=== PATIENT | male | born 1950 | race Caucasian/White ===

== ENCOUNTER 2017-10-28 00:13 | Emergency (ER) | payer MEDICARE ==
[~2017-10-28] VITALS: Ht 187.9 cm; Wt 120.2 kg
[2017-10-28] MEDS ORDERED: LISINOPRIL5 MG PO (00:41)
[2017-10-28] MEDS ORDERED: METFORMIN HCL500 MG PO (00:41)
[2017-10-28] MEDS ORDERED: ATORVASTATIN CA20 M1 PO (00:42)
[2017-10-28] MEDS ORDERED: METOPROLOL SUCC50 M1 PO (00:42)
[2017-10-28] MEDS ORDERED: HYDROCODONE-AC1 EACH PO (00:43)
[2017-10-28 01:13] LABS: BASO # 0.1 10*3/uL (0.0-0.1); BASO % 0.4 % (0.0-1.0); EOS # 0.1 10*3/uL (0.0-0.4); EOS % 0.3 % (1.0-4.0); HEMATOCRIT 44.6 % (42.0-52.0); HEMOGLOBIN 15.1 g/dl (14.0-18.0); LYMPH # 1.4 10*3/uL (1.3-4.4); LYMPH % 7.3 % (27.0-41.0); MEAN CELL VOLUME 98.2 fl (80.0-94.0); MEAN CORPUSCULAR HGB 33.3 pg (27.0-31.0); MEAN CORPUSCULAR HGB CONC 33.9 g/dl (33.0-37.0); MONO # 1.1 10*3/uL (0.1-1.0); MONO % 5.7 % (3.0-9.0); NEUT # 16.9 10*3/uL (2.3-7.9); NEUT % 85.8 % (47.0-73.0); PLATELET COUNT AUTOMATED 220 10*3/uL (130-400); RED BLOOD COUNT 4.54 10*6/uL (4.50-5.90); RED CELL DISTRI WIDTH 13.2 % (0-14.5); WHITE BLOOD COUNT 19.7 10*3/uL (4.8-10.8)
[2017-10-28 01:36] LABS: ALBUMIN 3.6 gm/dl (3.1-4.5); ALKALINE PHOSPHATASE 84 U/L (45-117); BUN 21 mg/dl (7-24); CHLORIDE 101 mmol/L (98-107); CREATININE 1.09 mg/dL (0.70-1.30); POTASSIUM 4.3 mmol/L (3.5-5.1); SGOT/AST 18 IU/L (3-35); SGPT/ALT 31 U/L (12-78); SODIUM 138 mmol/L (136-145); TOTAL PROTEIN 6.8 gm/dL (6.4-8.2)
[2017-10-28 01:39] LABS: TROPONIN I < 0.015 ng/ml (<0.045)
[2017-10-28 01:43] LABS: THYROID STIM HORMONE (HS) 0.947 uIU/ml (0.358-4.75)
[2017-10-28 02:01] LABS: BILIRUBIN NEGATIVE (NEGATIVE); BLOOD 3+ (NEGATIVE); CLARITY CLOUDY (CLEAR); COLOR YELLOW (YELLOW); GLUCOSE 2+ (NEGATIVE); KETONE 1+ (NEGATIVE); LEUKO ESTERASE 3+ (NEGATIVE); NITRITE POSITIVE (NEGATIVE); PH 6.5 (5.0-9.0); UROBILINOGEN 0.2 E.U./dl (0.2-1.0)
[2017-10-28 02:10] LABS: URINE AMPHETAMINES < 1000 (1000ng/ml); URINE BARBITURATES < 200 (200ng/ml); URINE BENZODIAZEPINES < 200 (200ng/ml); URINE CANNABINOIDS (THC) > 50 (50ng/ml); URINE COCAINE < 300 (300ng/ml); URINE METHADONE < 300 (300ng/ml); URINE OPIATES < 300 (300ng/ml)
[2017-10-28 02:15] LABS: URINE PHENCYCLIDINE < 25 (25ng/ml)
[2017-10-28 02:20] LABS: BACTERIA 3+; RBC TNTC rbc/hpf (0-2); WBC TNTC wbc/hpf (0-5)
== END 2017-10-28 03:38 | disposition short-term general hospital (02) ==
LOC: ED 00:13
PROVIDERS: Emergency Medicine Emergency Medical Services
DX: A41.9 Sepsis, unspecified organism (principal); J18.1 Lobar pneumonia, unspecified organism; N39.0 Urinary tract infection, site not specified; R09.02 Hypoxemia; R31.9 Hematuria, unspecified; R33.9 Retention of urine, unspecified; I10 Essential (primary) hypertension; E11.40 Type 2 diabetes mellitus with diabetic neuropathy, unspecified; E78.00 Pure hypercholesterolemia, unspecified; Z88.6 Allergy status to analgesic agent; Z79.899 Other long term (current) drug therapy

== ENCOUNTER 2018-10-26 15:35 | Inpatient (IN) | payer MEDICARE ==
[~2018-10-26] VITALS: Ht 188 cm; Wt 110.4 kg
--- NOTE | ~2018-10-26 | EKG ---
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 Handicapped: Deena Hagan : 1950 Requested By: CARRIE DONG Order Number: [id number] Reading MD: Elizabeth Morrison MD Measurements Intervals [place] Rate: 45 P: 63 CA: 235 QRS: -79 QRSD: 146 T: 0 QT: 488 QTc: 423 Interpretive Statements Sinus bradycardia Prolonged CA interval RBBB and LAFB Baseline wander in lead(s) V1,V3 Compared to ECG 10/31/2018 23:18:56 First degree AV block now present Left anterior fascicular block now present Atrial flutter no longer present 2:1 AV block no longer present Electronically Signed On 11-02-2018 15:07:39 PDT by Elizabeth Morrison MD CM:EKGRPT:ELECTROCARDIOGRAM REPORT [id number] CARRIE LISA DRAFT REPORT CARRIE DONG DO
--- NOTE | ~2018-10-26 | CON ---
[place], [place] REPORT OF CONSULTATION NAME: MORALES REA UNIT #: [id number] ROOM: 523 DOCTOR: LIZY GARCES MD BIRTHDATE: [birth year] DOS: 10/30/2018 REASON FOR CONSULTATION: Sacral decubitus ulcer with osteomyelitis. HISTORY OF PRESENT ILLNESS: This is a 68-year-old male, who is currently admitted to [facility] because of altered mental status. He had a prolonged hospitalization at [facility] for his sacral decubitus ulcer and osteomyelitis and he was discharged to [facility] where he stayed for just one day and he says he did not receive any antibiotics and his son found him with altered mentation and he was brought to the hospital. Since he has been admitted, which is on 26/10/2018, he has been afebrile. His labs reveal no leukocytosis. His kidney function is stable. He did suffer acute kidney injury and received brief period of dialysis at [facility]. He is currently getting antibiotics, Zyvox and meropenem. His wounds were evaluated by Dr. Schumacher from General Surgery and managing his wound VAC. This is an unfortunate case of a 68-year-old gentleman, who has now developed chronic osteomyelitis of his sacral area. He has been treated for almost 36 weeks at [facility] with IV antibiotics on 3 different occasions and according to the patient every time he used to get sick with fever, chills, nausea, vomiting and his ulcers were found infected, he was getting treatment to the point his last admission in 08/2018, he developed C. difficile diarrhea, which was treated with oral vancomycin. Subsequently, he was admitted to [facility] on 09/21/2018, with fever, chills and weakness. 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 He still has strength over his lower extremities, but no sensation and that caused his sacral decubitus ulcer. According to the patient, his ulcer was large at one point and then healing, but then it kept on getting infected. Some of the culture results, I have from [facility] initially had E. coli, VRE, MRSA from 12/2017. At that time, the VRE was ampicillin sensitive. However, after the wound debridement, which was done in [facility] last month showed growth of VRE, which is vancomycin and ampicillin resistant ESBL E. coli, Pseudomonas. The Pseudomonas is cefepime sensitive, sensitive to carbapenems as well as Levaquin. At that time, it was thought the patient should undergo diverting colostomy and suprapubic catheter placement. He even underwent ostectomy of the sacral decubitus ulcer on 10/23/2018. The pathology result, which I have from 10/23/2018, showed hemorrhagic necrotic fibroadipose tissue with prominent acute inflammation, which means he had acute on chronic osteomyelitis. The patient was discharged on linezolid plus meropenem for 6 weeks; however, he says he did not receive antibiotics at the alf at discharge. PAST MEDICAL HISTORY: Significant for COPD, diabetes, osteomyelitis of sacrum decubitus ulcer, spinal stroke, GERD, PE. PAST SURGICAL HISTORY: Appendectomy, colon resection, colostomy, colostomy reversal, nose reconstruction, multiple debridements of sacral wound, ostectomy, diverting colostomy, suprapubic catheter placement. FAMILY HISTORY: Unknown. [place], [place] REPORT OF CONSULTATION NAME: MORALES REA UNIT #: [id number] ROOM: 523 [facility] BIR[facility]: [birth year] SOCIAL HISTORY: Former smoker, nonalcoholic, no illicit drug use. MEDICATIONS: Noted. REVIEW OF SYSTEMS: A 12-point review of system has been done and pertinent negatives, positives included in HPI, rest are noncontributory. PHYSICAL EXAMINATION: VITAL SIGNS: Noted stable. GENERAL: The patient is alert, oriented x 3, not in acute distress. HEENT: Atraumatic, normocephalic. PERRLA, EOMI. RESPIRATORY: Air entry bilaterally equal. No wheeze or crackles. CARDIOVASCULAR: S1, S2 normal. No murmur, rubs or gallops. ABDOMEN: Soft, nontender, nondistended. Bowel sounds present. Colostomy bag noted as well as suprapubic catheter, no leakage. EXTREMITIES: Sacral decubitus ulcer, currently has a wound VAC in place with surrounding redness, no tenderness and he has no pain sensation as well. No pedal edema. LABORATORY DATA AND IMAGING: Noted mentioned in HPI. ASSESSMENT AND PLAN: 1. Nbego-bg-ngonhyh osteomyelitis of coccygeal bone. Wound cultures from [facility] from 10/03/2018, shows growth of ESBL E. coli sensitive to ertapenem, meropenem, growth of MRSA sensitive to Bactrim, linezolid, sensitive to daptomycin. For MRSA, the DAGMAR of linezolid is 4, vancomycin DAGMAR of 1 for MRSA. Also has pseudomonas pansensitive, sensitive to Levaquin and VRE ampicillin and vancomycin-resistant, susceptible to linezolid. Path result consistent with acute on chronic osteomyelitis, status post ostectomy on 10/23/2017. PLAN: At this time, I would recommend changing linezolid to daptomycin for better bactericidal action. Continue with meropenem. Unclear where the patient is getting his disposition at discharge. He was not happy with his last placement. He lives in [place] and he is close to [place] and would be good if he follows up with Infectious Disease doctor, Dr. Leila Farah in [place]. His last ESR, CRP were trending down. Order one again to see his response. Okay for discharge from Infectious Disease standpoint. He already has a right arm PICC line in place. Also, he has a hemodialysis catheter on right chest. Thank you for your consult. Please call if any questions. [place], [place] REPORT OF CONSULTATION NAME: MORALES REA UNIT #: [id number] ROOM: 523 DOCTOR: LIZY GARCES MD BIRTHDATE: [birth year] Lizy Garces MD CM:CONSTR:REPORT OF CONSULTATION 41 10/30/18 1439 interface
--- NOTE | ~2018-10-26 | CON ---
[place], [place] REPORT OF CONSULTATION NAME: MORALES REA UNIT #: [id number] ROOM: 523 DOCTOR: FAZAL STRINGER MD BIRTHDATE: [birth year] DOS: 10/27/2018 NEPHROLOGY CONSULTATION REASON FOR CONSULTATION: Acute kidney injury/management of dialysis. HISTORY OF PRESENT ILLNESS: This is a 68-year-old male. He has a history of diabetes; acute kidney injury, now dialysis dependent; spinal cord stroke with details unclear as well as history of ileostomy and suprapubic catheter. The patient recently was discharged from outside facility to a [place] [facility] facility. I am not clear of the details, but it seems he has had a chronic sacral wound. He underwent a diverting ileostomy and suprapubic catheter due to this wound. Apparently during the procedure, he had a cardiac arrest with resuscitation. He developed acute kidney injury, was started on dialysis. He tells me he has had four sessions. He was unable to recall, which day was his last treatment. He appears to be producing urine. His creatinine today was 2.8. He does have a right IJ tunneled dialysis catheter. He was brought to the hospital from [place] [facility] due to a change in mental status. He currently appears comfortable. He states to me he has not seen a ammonia refrigeration worker as an outpatient prior to his recent issues. He tells me he is hopeful his kidney function will improve. His true baseline creatinine is not clear. Currently, denies shortness of breath, nausea, vomiting, fevers, chills or night sweats. ALLERGIES: Listed to PERCOCET. MEDICATIONS: Include insulin, Lipitor, Protonix, iron, Eliquis, clonidine, BuSpar, amiodarone, loratadine, metoprolol, Rocephin. PAST MEDICAL HISTORY: 1. Recent acute kidney injury, now dialysis dependent as stated above. 2. Tunneled dialysis catheter placement. 3. Diabetes mellitus. 4. Spinal cord stroke, details unclear. 5. Cervical diskectomy. 6. Suprapubic catheter placement. 7. History of diverting ileostomy. 8. Anemia. 9. Neuropathy. 10. Sacral decubitus ulcer/wound. 11. Cardiac arrest. 12. Apparent osteomyelitis, previously treated according to the patient 4 times with IV antibiotics. 13. Questionable atrial fibrillation. FAMILY HISTORY: No reports of chronic kidney disease, otherwise noncontributory. SOCIAL HISTORY: No alcohol or illicit drugs. Previous history of tobacco abuse. [place], [place] REPORT OF CONSULTATION NAME: MORALES REA UNIT #: [id number] ROOM: 523 DOCTOR: FAZAL STRINGER MD BIRTHDATE: [birth year] REVIEW OF SYSTEMS: As per HPI, otherwise, a 10-point review of systems was reviewed and was negative. PHYSICAL EXAMINATION: VITAL SIGNS: Temperature is afebrile, pulse 95, respiratory rate 18, blood pressure 96/54. GENERAL: He is awake, alert, comfortable, lying in bed, in no acute distress. HEENT: Shows no JVD. Sclerae are anicteric. Mucous members are somewhat dry. Pharynx is clear. NECK: Supple. Trachea is midline. There is no neck lymphadenopathy or thyromegaly. LUNGS: Diminished breath sounds with no wheeze. There is no tactile fremitus. He is not using accessory muscles of respiration. HEART: S1, S2. No rub. No thrill or gallop. ABDOMEN: Soft, nontender. There is no organomegaly or rigidity, rebound or guarding. There is no CVA tenderness. EXTREMITIES: Had trace edema. There is no lower extremity lymphadenopathy. Distal pulses were present. SKIN: Revealed no overt rash, petechia or purpura. Skin temperature is warm. NEUROLOGIC: He was awake, alert and following commands. Cranial nerves appeared to be intact. LABORATORY DATA: Hemoglobin 9.8, white count of 9.9, platelets 222, glucose 156, BUN 52, creatinine 2.8, sodium 139, potassium 4.5, CO2 of 27, calcium 8.8, phosphorus 4.5, magnesium 2.1, albumin 2.9. IMPRESSION: 1. Acute kidney injury with an unclear true baseline creatinine. This appears likely related to acute tubular necrosis, now dialysis dependent through a tunneled dialysis catheter. 2. Encephalopathy/change in mental status, which seems to have resolved. 3. Anemia, likely of chronic disease. 4. History of sacral wound/osteomyelitis. 5. Severe deconditioning, hypoalbuminemia. 6. Diabetes mellitus. 7. History of hypertension with now hypotension. PLAN: 1. We will continue supportive care. Follow labs daily. We will assess daily for dialysis. Currently, the patient is making urine. His creatinine appears to be stable. We will hold on any dialysis plans for now. 2. Please avoid contrast studies and nephrotoxic agents. 3. Replace electrolytes as needed. 4. Dose meds for current creatinine clearance. Thank you for this consultation. We will follow with you. [place], [place] REPORT OF CONSULTATION NAME: MORALES REA UNIT #: [id number] ROOM: 523 DOCTOR: SIOMARA JONES,FAZAL Zamora BIRTHDATE: [birth year] FAZAL STRINGER MD CM:CONSTR:REPORT OF CONSULTATION 1300 10/27/18 2225 interface
--- NOTE | ~2018-10-26 | EKG ---
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: Deena Hagan : 1950 Requested By: ELIZABETH VERA Order Number: [id number] Reading MD: Elizabeth Vera MD Measurements Intervals [place] Rate: 46 P: 50 TX: 227 QRS: -82 QRSD: 149 T: -32 QT: 476 QTc: 417 Interpretive Statements Normal sinus rhythm with 2:1 high degree AV block Borderline prolonged [place] interval RBBB and LAFB Baseline wander in lead(s) V2 Compared to ECG 10/31/2018 23:18:56 Left anterior fascicular block now present Atrial flutter no longer present 2:1 AV block no longer present Electronically Signed On 11-02-2018 15:09:08 PDT by Elizabeth Vera MD CM:EKGRPT:ELECTROCARDIOGRAM REPORT [id number] ELIZABETH SULLIVANANY DRAFT REPORT ELIZABETH VERA MD
--- NOTE | ~2018-10-26 | EKG ---
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: Camilla Harper : 1950 Requested By: JAZMINE MARKS Order Number: [id number] Reading MD: Elizabeth Morrison MD Measurements Intervals [place] Rate: 128 P: HI: QRS: -87 QRSD: 145 T: 77 QT: 334 QTc: 488 Interpretive Statements Atrial flutter with predominant 2:1 AV block Right bundle branch block Baseline wander in lead(s) I,II,aVR,V4,V6 Partial missing lead(s): V6 Compared to ECG 10/26/2018 16:04:56 2:1 AV block now present Sinus rhythm no longer present Left anterior fascicular block no longer present Electronically Signed On 11-01-2018 15:34:50 PDT by Elizabeth Morrison MD CM:EKGRPT:ELECTROCARDIOGRAM REPORT [id number] JAZMINE LISA DRAFT REPORT JAZMINE MARKS DO
--- NOTE | ~2018-10-26 | EKG ---
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
[~2018-10-26 15:35] MED LIST: ATORVASTATIN CA20 M1 PO; HYDROCODONE-AC1 EACH PO; LISINOPRIL5 MG PO; LOPRESSOR25 MG PO; METFORMIN HCL500 MG PO
[2018-10-26 15:56] VITALS: BP 98/66
[2018-10-26 16:10] LABS: BILIRUBIN NEGATIVE (NEGATIVE); BLOOD 1+ (NEGATIVE); CLARITY SL CLOUDY (CLEAR); COLOR YELLOW (YELLOW); GLUCOSE NEGATIVE (NEGATIVE); KETONE NEGATIVE (NEGATIVE); LEUKO ESTERASE 1+ (NEGATIVE); NITRITE NEGATIVE (NEGATIVE); SPECIFIC GRAVITY 1.015 (1.005-1.030); UROBILINOGEN 0.2 E.U./dl (0.2-1.0)
[2018-10-26 16:17] LABS: BACTERIA 2+; WBC 21-30 wbc/hpf (0-5); YEAST 3+
[2018-10-26 16:24] LABS: BASO # 0.1 10*3/uL (0.0-0.1); BASO % 0.4 % (0.0-1.0); EOS # 0.4 10*3/uL (0.0-0.4); EOS % 3.1 % (1.0-4.0); HEMATOCRIT 33.2 % (42.0-52.0); HEMOGLOBIN 10.2 g/dl (14.0-18.0); LYMPH # 1.3 10*3/uL (1.3-4.4); LYMPH % 11.8 % (27.0-41.0); MEAN CORPUSCULAR HGB 26.4 pg (27.0-31.0); MEAN CORPUSCULAR HGB CONC 30.7 g/dl (33.0-37.0); MEAN PLATELET VOLUME 8.6 fl (9.6-12.3); MONO # 1.1 10*3/uL (0.1-1.0); MONO % 9.3 % (3.0-9.0); NEUT # 8.4 10*3/uL (2.3-7.9); NEUT % 74.9 % (47.0-73.0); PLATELET COUNT AUTOMATED 232 10*3/uL (130-400); RED BLOOD COUNT 3.86 10*6/uL (4.50-5.90); RED CELL DISTRI WIDTH 21.6 % (0-14.5); WHITE BLOOD COUNT 11.2 10*3/uL (4.8-10.8)
--- NOTE | 2018-10-26 16:26 | NUR ---
FAMILY WAS ASKING HOW THEY WOULD GET INVESTIGATION TO LOOK INTO CARE AT [facility] I ADVISED THEM TO CALL [facility] DEPT OF HEALTH AND MAYBE THEY CAN HELP.
[2018-10-26 16:35] LABS: ACT PARTIAL THROMBO TIME 30.2 SECONDS (20.8-31.5); INTERNATIONAL NORM RATIO 1.1 (2.0-3.5)
--- NOTE | 2018-10-26 16:44 | NUR ---
STUDENT DEVELOPMENT SPECIALIST NOTIFIED ABOUT FAMILYS CONCERNS
--- NOTE | 2018-10-26 16:46 | NUR ---
PT POSITIONED FOR COMFORT FAMILY IN ROOM CALL LIGHT IN REACH NO DISTRESS NOTED
[2018-10-26 16:52] VITALS: BP 118/67
[2018-10-26 16:59] LABS: ALBUMIN 2.9 gm/dl (3.1-4.5); ALKALINE PHOSPHATASE 87 U/L (45-117); BUN 49 mg/dl (7-24); CHLORIDE 101 mmol/L (98-107); CREATININE 2.89 mg/dL (0.70-1.30); POTASSIUM 4.8 mmol/L (3.5-5.1); SGOT/AST 12 IU/L (3-35); SGPT/ALT 15 U/L (12-78); SODIUM 137 mmol/L (136-145); TOTAL PROTEIN 8.7 gm/dL (6.4-8.2)
[2018-10-26 17:03] LABS: TROPONIN I < 0.015 ng/ml (<0.045)
--- NOTE | 2018-10-26 17:31 | NUR ---
PT RESTING IN BED NO DISTRESS NOTED CALL LIGHT IN REACH
[2018-10-26 17:50] VITALS: BP 106/55
--- NOTE | 2018-10-26 18:04 | NUR ---
PT RESTING IN BED FAMILY IN ROOM DR GIANG IN TO SPEAK WITH FAMILY NO DISTRESS NOTED CALL LIGHT IN REACH
--- NOTE | 2018-10-26 18:07 | NUR ---
PTS OXYGEN DROPS WHEN HE FALLS ASLEEP PULSE OX WENT TO 78 IN WENT IN ROOM PT WAS SNORING AWAKEN TO VERBAL STIMULI I TRIED TO APPLY OXYGEN MASK BUT HER REFUSED FAMILY IN ROOM STATES PT IS CLOSTROPHOBIC AND REFUSES TO WEAR MASK OR BI-PAP BUT HE HAS SLEEP APNEA I EXPLAINED TO PT HIS OXYGEN IS DROPPING LOW WHEN HE SLEEPS AND IF HE WORE A MASK IT WOULD HELP BUT HE CONTINUED TO REFUSE. PT PULSE OX 98% WHEN ON NC WHEN I LEFT ROOM. FAMILY IN ROOM CALL LIGHT IN REACH
[2018-10-26 18:38] VITALS: BP 110/57
--- NOTE | 2018-10-26 18:45 | NUR ---
[facility] WONT ACCEPT PT SO HE IS GOING TO BE ADMITTED HERE FAMILY IS AWARE OF THIS AND ARE OK WITH PLAN OF CARE. PT TO CT SCAN
[2018-10-26 20:00] VITALS: BP 95/34
--- NOTE | 2018-10-26 20:00 | NUR ---
A 68, admitted to , under the services of [facility] DO with a diagnosis of METABOLIC ENCEPHALOPATHY. Chief complaint is ALTERED MENTAL STATUS. Patient arrived via stretcher from ER. Monitor applied. Initial assessment completed. Vital signs taken and recorded. [facility] DO notified of admission to the unit. Orders received. See assessment for past medical history, medications and allergies. Patient and/or family oriented to unit. [facility] visitation policy reviewed. Clothing/patient valuable form completed. ACE ARCHULETA
--- NOTE | 2018-10-26 21:00 | NUR ---
CALLED DR. ZARCO PERTAINING TO PT. HAVING A SPONGE ON BUTTOCKS FROM WOUND VAC & NOT HOOKED UP TO WOUND VAC. FAMILY MEMBERS (2 SONS) AND PATIENT ARE UNABLE TO UPDATE MED REC. THE ONLY MEDICATION THAT THE SONS STATE THAT THEY KNOW THAT THE FATHER TAKES IS VICODIN. INFORMED DR. ZARCO OF THIS. ALSO HAD SON SIGN A RELEASE OF MEDICAL INFORMATION FOR [facility] THEY PATIENT WAS JUST DISCHARGED FROM [facility] & WENT TO [facility] FOR ONE DAY.
--- NOTE | 2018-10-26 21:55 | NUR ---
CALLED [facility] AGAIN PERTAINING TO HAVING THEM FAX PATIENT'S MED REC TO US.
--- NOTE | 2018-10-26 21:56 | NUR ---
CALLED DR. LYON'S ANSWERING SERVICE PERTAINING TO PT. CONSULT. LEFT MESSAGE.
[2018-10-26] MEDS ORDERED: FLONASE ALLERG9.9 ML NAS (22:01)
[2018-10-26] MEDS ORDERED: GLUCAGON EMERGEN1 M1 IM (22:02)
[2018-10-26] MEDS ORDERED: GLUTOSE 1537.5 GM PO (22:03)
[2018-10-26] MEDS ORDERED: LEVEMIR FL100 UNIT/1 SQ (22:05)
[2018-10-26] MEDS ORDERED: CLARITIN10 MG PO (22:05)
[2018-10-26] MEDS ORDERED: MAG-AL PLUS 3030 ML PO (22:06)
[2018-10-26] MEDS ORDERED: MIRALAX POWDER17 G1 PO (22:08)
[2018-10-26] MEDS ORDERED: NOVOLOG FL100 UNIT/1 SQ (22:09)
[2018-10-26] MEDS ORDERED: TYLENOL325 M1 PO (22:11)
[2018-10-26] MEDS ORDERED: ALBUTEROL2.5 MG/0.5 NEB (22:12)
[2018-10-26] MEDS ORDERED: AMIODARONE HYD200 MG PO (22:13)
[2018-10-26] MEDS ORDERED: BANOPHEN25 MG PO (22:14)
[2018-10-26] MEDS ORDERED: BUPROPION HYDR100 MG PO (22:15)
[2018-10-26] MEDS ORDERED: CLONIDINE HCL0.1 MG PO (22:16)
[2018-10-26] MEDS ORDERED: DULCOLAX STOOL100 M1 PO (22:16)
[2018-10-26] MEDS ORDERED: ELIQUIS5 M1 PO (22:17)
[2018-10-26] MEDS ORDERED: IRON325 M1 PO (22:18)
[2018-10-26] MEDS ORDERED: PANTOPRAZOLE SO40 MG PO (22:19)
--- NOTE | 2018-10-26 23:15 | NUR ---
PT'S WOUND VAC DRESSING REMOVED AT THIS TIME. DR. ZARCO PRESENT IN ROOM WITH 2 RN'S. WOUND CLEANSES & NEW DRESSING APPLIED OF ADAPTIC, 4X4'S & ABD'S. PT. TOLERATED WELL.
[2018-10-27] VITALS: BP 122/70
--- NOTE | 2018-10-27 06:00 | NUR ---
BLOOD SUGAR 173; COVERAGE GIVEN PER EMAR.
[2018-10-27 06:44] LABS: BASO # 0.1 10*3/uL (0.0-0.1); BASO % 0.6 % (0.0-1.0); EOS # 0.5 10*3/uL (0.0-0.4); EOS % 5.1 % (1.0-4.0); HEMATOCRIT 32.9 % (42.0-52.0); HEMOGLOBIN 9.8 g/dl (14.0-18.0); LYMPH # 1.4 10*3/uL (1.3-4.4); LYMPH % 13.9 % (27.0-41.0); MEAN CORPUSCULAR HGB 25.9 pg (27.0-31.0); MEAN CORPUSCULAR HGB CONC 29.8 g/dl (33.0-37.0); MEAN PLATELET VOLUME 9.1 fl (9.6-12.3); MONO # 0.9 10*3/uL (0.1-1.0); MONO % 9.1 % (3.0-9.0); NEUT % 70.7 % (47.0-73.0); PLATELET COUNT AUTOMATED 222 10*3/uL (130-400); RED BLOOD COUNT 3.78 10*6/uL (4.50-5.90); RED CELL DISTRI WIDTH 21.5 % (0-14.5); WHITE BLOOD COUNT 9.9 10*3/uL (4.8-10.8)
[2018-10-27 07:06] LABS: ALBUMIN 2.9 gm/dl (3.1-4.5); CREATININE 2.83 mg/dL (0.70-1.30); PHOSPHOROUS 4.5 mg/dL (2.5-4.9); POTASSIUM 4.5 mmol/L (3.5-5.1); TOTAL PROTEIN 8.4 gm/dL (6.4-8.2)
[2018-10-27 07:12] LABS: FREE T4 1.36 ng/dl (0.76-1.46); THYROID STIM HORMONE (HS) 2.1 uIU/ml (0.358-4.75)
[2018-10-27 08:00] VITALS: BP 96/54
[2018-10-27 08:01] VITALS: BP 96/54
--- NOTE | 2018-10-27 08:18 | NUR ---
Shift chart check completed.
[2018-10-27 08:47] LABS: VITAMIN D, 25-HYDROXY 22.3 ng/mL (30-100)
--- NOTE | 2018-10-27 11:20 | NUR ---
PER FLOAT NURSE AND PRIMARY CARE NURSE, FAMILY RECORDING STAFF AND DOCUMENTING CARE. FAMILY HAS MADE MULTIPLE ACCUSATIONS AGAINST OTHER FACILITIES REGARDING CARE PATIENT HAS RECEIVED AND THREATS TO [facility]. NURSING SWISS TYPE SCREW MACHINE OPERATOR FRANK NOTIFIED OF ISSUE, WILL COME TO FLOOR TO TALK WITH PATIENT/FAMILY
--- NOTE | 2018-10-27 12:11 | NUR ---
Spoke with Dr. John regarding patients blood pressure. Per physician monitor and call him it drops to [id number]
--- NOTE | 2018-10-27 15:21 | NUR ---
Per physician request contacted [facility]. for discharge summary. Spoke with nursing delivery department supervisor Demetra and fax number is .
--- NOTE | 2018-10-27 15:45 | NUR ---
Request for medical information was faxed to [facility]. Awaiting response.
[2018-10-27 16:00] VITALS: BP 106/63
--- NOTE | 2018-10-27 16:20 | NUR ---
[place] given per patient request for chronic neck pain patient rates 02/05. Will monitor.
--- NOTE | 2018-10-27 16:25 | NUR ---
Notified Dr. John that requested information from [facility] has been received.
--- NOTE | 2018-10-27 16:50 | NUR ---
Contacted answering service for Dr. Johnson to verify message for consult was received.
--- NOTE | 2018-10-27 19:39 | NUR ---
ASSUMED CARE OF PT AT THIS TIME. PATIENT IS ASLEEP IN BED. RESPIRATIONS EASY. NO S/S OF DISTRESS NOTED. BED LOCKED IN LOW POSITION, BED ALARM INTACT, CALL LIGHT IN REACH. WILL MONITOR.
[2018-10-27 20:00] VITALS: BP 106/56
--- NOTE | 2018-10-27 21:33 | NUR ---
NOTIFIED OF BP 106/56 AND HR 100-104 PER CM. INSTRUCTED TO GIVE 2200 DOSE OF PO LOPRESSOR AND HOLD 1800 DOSE OF CATAPRES NOT GIVEN BY AM SHIFT.
--- NOTE | 2018-10-27 21:49 | NUR ---
PATIENT MEDICATED WITH PO NORCO PER PRN ORDER FOR C/O PAIN IN NECK/SHOULDERS/ARMS RATED 7/10. WILL MONITOR. EFFECTIVENESS. CALL LIGHT LEFT IN REACH.
[2018-10-28] VITALS: BP 102/55
[2018-10-28 06:16] LABS: BASO # 0.1 10*3/uL (0.0-0.1); BASO % 0.5 % (0.0-1.0); EOS # 0.9 10*3/uL (0.0-0.4); EOS % 7.3 % (1.0-4.0); HEMOGLOBIN 9.5 g/dl (14.0-18.0); LYMPH # 1.3 10*3/uL (1.3-4.4); LYMPH % 10.6 % (27.0-41.0); MEAN CELL VOLUME 87.7 fl (80.0-94.0); MEAN CORPUSCULAR HGB CONC 29.7 g/dl (33.0-37.0); MEAN PLATELET VOLUME 9.2 fl (9.6-12.3); MONO % 8.1 % (3.0-9.0); NEUT # 8.9 10*3/uL (2.3-7.9); NEUT % 72.9 % (47.0-73.0); PLATELET COUNT AUTOMATED 238 10*3/uL (130-400); RED BLOOD COUNT 3.65 10*6/uL (4.50-5.90); RED CELL DISTRI WIDTH 21.4 % (0-14.5); WHITE BLOOD COUNT 12.1 10*3/uL (4.8-10.8)
[2018-10-28 06:50] LABS: ALBUMIN 2.7 gm/dl (3.1-4.5); CREATININE 2.74 mg/dL (0.70-1.30); POTASSIUM 5.2 mmol/L (3.5-5.1); TOTAL PROTEIN 8.3 gm/dL (6.4-8.2)
--- NOTE | 2018-10-28 07:49 | NUR ---
PHYSICAL THERAPY Nursing screen received. PT orders also received. Thank you. Yeny Love,PT
[2018-10-28 08:00] VITALS: BP 108/62
[2018-10-28 08:01] VITALS: BP 108/62
--- NOTE | 2018-10-28 08:45 | NUR ---
Tried to contact Dialysis clinic for inpt. but there was no voice mail set up. Will attempt later.
--- NOTE | 2018-10-28 09:29 | NUR ---
MORALES REA [id number] Please refer to the physician's history and physical for past medical history, comorbid conditions, and allergies. Diagnosis: ENCEPHALOPATHY Pedro Score: 12,HIGH RISK WOUND DESCRIPTIONS: Location of the wound: coccyx Type of wound: stage 4 Thickness: Full Size: 9.0cm x 8.7cm x 3.5cm Tunneling: none Underminin.5cm at 1 o'clock 0 3 o'clock, 4.5cm at 10 o'clock - 12 o'clock Sinus Tract: none Presence of Exudate: Purulent Amount: Copious Color: Brown, red, yellow Odor: Foul Periwound Skin Appearance: Macerated Wound edges: epibole Pain (associated with wound): tender to touch How does patient state this happened? pt stated this started a year ago and was following at [facility] and had his last procedure done at [place] and came from [facility] where he was only there a day and doesn't want to return. Location of the wound: left thigh Type of wound: stage 2 Thickness: Partial Size: 4.6cm x 4.0cm x 0.1cm Tunneling: none Undermining: none Sinus Tract: none Presence of Exudate: Serosanguineous Amount: Moderate Color: Red Odor: Foul Periwound Skin Appearance: Macerated Wound edges: approximated Pain (associated with wound): tender to touch How does patient state this happened? pt stated this started a year ago and was following at [facility] and had his last procedure done at [place] and came from [facility] where he was only there a day and doesn't want to return. Location of the wound: left top of foot Type of wound: DTI Size: 0.7cm x 0.6cm x <0.1cm Tunneling: none Undermining: none Sinus Tract: none Presence of Exudate: none Amount: None Color: Purple, dark red Odor: None Periwound Skin Appearance: Normal Wound edges: closed Pain (associated with wound): none at time of assessment How does patient state this happened? pt stated this started a year ago and was following at [facility] and had his last procedure done at [place] and came from [facility] where he was only there a day and doesn't want to return. Location of the wound: left buttocks Type of wound: stage 2 Thickness: Partial Size: 0.5cm x 2.3cm x 0.1cm Tunneling: none Undermining: none Sinus Tract: none Presence of Exudate: Serosanguineous Amount: Moderate Color: Red Odor: Foul Periwound Skin Appearance: Macerated Wound edges: approximated Pain (associated with wound): tender to touch How does patient state this happened? pt stated this started a year ago and was following at [facility] and had his last procedure done at [place] and came from [facility] where he was only there a day and doesn't want to return. Location of the wound: right buttocks Type of wound: unstageable Thickness: Full Size: 2.5cm x 1.5cm x <0.1cm Tunneling: none Undermining: none Sinus Tract: none Presence of Exudate: Serosanguineous Amount: Moderate Color: Red Odor: Foul Periwound Skin Appearance: Macerated Wound edges: approximated Pain (associated with wound): tender to touch How does patient state this happened? pt stated this started a year ago and was following at [facility] and had his last procedure done at [place] and came from [facility] where he was only there a day and doesn't want to return. Location of the wound: right hip Type of wound: stage 2 Thickness: Partial Size: 0.7cm x 2.0cm x 0.1cm Tunneling: none Undermining: none Sinus Tract: none Presence of Exudate: Serosanguineous Amount: Moderate Color: Red Odor: Foul Periwound Skin Appearance: Macerated Wound edges: approximated Pain (associated with wound): tender to touch How does patient state this happened? pt stated this started a year ago and was following at [facility] and had his last procedure done at [place] and came from [facility] where he was only there a day and doesn't want to return. Location of the wound: right lower back Type of wound: stage 2 Thickness: Partial Size: 0.7cm x 1.6cm x 0.1cm Tunneling: none Undermining: none Sinus Tract: none Presence of Exudate: Serosanguineous Amount: Moderate Color: Red Odor: Foul Periwound Skin Appearance: Macerated Wound edges: approximated Pain (associated with wound): tender to touch How does patient state this happened? pt stated this started a year ago and was following at [facility] and had his last procedure done at [place] and came from [facility] where he was only there a day and doesn't want to return. Glued surgical incision noted to right lower abdomen. No redness or drainage noted at time of assessment. Left lateral 4th toe red and blanchable at time of assessment, no open areas noted no drainage noted at time of assessment. Patient stated he has had a wound vac on and off for about 1 year now and the last appilication was done at [facility]. Surface the patient is resting on: Isoflex SKIN PREVENTION RECOMMENDATION: 1. Pressure redistribution support surface as appropriate 2. Elevate heels 3. Remove boots/TEDS every shift and reapply 4. Head of bed 30 degrees as tolerated 5. Assess nutrition and hydration 6. Manage moisture 7. Avoid the use of containment devices while in bed 8. Use absorptive products on surfaces limit layers of linens on bed 9. Turn and reposition every 1-2 hours in bed and every 1 hour in chair as tolerated 10. Weight shifts every 15 minutes while up in chair 11. Offloading with pillows or device to keep heels elevated off bed 12. Monitor skin at least every shift 13. Inspect under medical devices twice a day WOUND TREATMENT RECOMMENDATIONS: Consult surgery for possible debridement and wound care orders to [facility]. Stage 2 guidelines: Cleanse left thigh, left buttocks, right hip and right lower back with nss and apply sureprep around the wound thereahoney to wound bed and cover with optifoam gentle. Unstageable guidelines: Cleanse right buttocks with nss and apply sureprep around the wound therahoney to wound bed and cover with optifoam gentle. DTI guidelines: Apply sureprep to left top of foot then cover with optifoam gentle. Wheelchair cushion when oob. Heel raiser pro boots while in bed to bilateral feet.
--- NOTE | 2018-10-28 11:05 | NUR ---
Patient not available as nursing is with patient Leana La OTR/l.
[2018-10-28 12:00] VITALS: BP 101/55
--- NOTE | 2018-10-28 12:16 | NUR ---
Wound Care Recommendations given to Elsy LANCE who is caring for patient today.
--- NOTE | 2018-10-28 12:50 | NUR ---
Received wound care orders from NATALIO Smith.
--- NOTE | 2018-10-28 12:58 | NUR ---
Patient requesting a referral to [facility]. [facility] and faxed referral. [facility] stated they are unable to accept this patient back (he was in [facility] previously) due to the patient and family causing "issues". They did not go into detail regarding what issues or concerns, but will not allow patient to return to their facility. Patient requested referral to [facility]; Contacted Lisa and faxed referral, waiting on response.
--- NOTE | 2018-10-28 13:44 | NUR ---
Patient not available for OT eval as he is with the doctor. Leana La OTR/L
--- NOTE | 2018-10-28 14:19 | NUR ---
PT WAS SHORT TERM AT [facility]. WAS SENT THERE FROM [facility] AFTER SURGERY ON JUNUB LAST WEEK. PT DOES NOT WANT TO RETURN TO [facility]. PT STATES HE WILL GO ANYWHERE ELSE HIS INSURANCE WILL PAY. [employer] INFORMED AND IS WORKING ON IT. TALKED WITH PT ABOUT POSSIBLY GOING TO AN LTAC, PT STATES THEY TRIED TO GET HIM INTO [facility] WHEN HE WAS THERE BUT INSURANCE WOULD NOT PAY. WILL CONTINUE TO FOLLOW.
--- NOTE | 2018-10-28 14:40 | NUR ---
PHYSICAL THERAPY PAtient with nursing at 11:05 am PAtient with Doctors at 13:44 pm Will attempt at a later date. Thank you for this referral. Yeny Love,PT
[2018-10-28 16:00] VITALS: BP 104/51
--- NOTE | 2018-10-28 17:20 | NUR ---
Per request of Dr. Schumacher I contacted [facility] to verify whether or not the patient came to the facility with a wound vac. Per NATALIO Lin the patient wound not have been admitted with a wound vac because [facility] orders them. I relayed the message to Dr. Schumacher. He requested that I contacted nursing schedule supervisor to have wound vac and large/medium supplies in patients room so he can place wound vac on patient on 10-29-18. I contacted nursing schedule supervisor with the physicians request.
--- NOTE | 2018-10-28 17:50 | NUR ---
Per request of Dr. Green I contacted [facility] to speak with ID physician that cared for patient and to gain more information on antibiotics they prescribed at time of discharge. The information could not be located in the records sent from [facility]. or from [facility].
--- NOTE | 2018-10-28 18:03 | NUR ---
Notified Dr. Schumacher that patient did not arrive with a wound vac. Per NATALIO Lin the wound vac would be ordered from [facility]. Per physician request notified nursing electronic controls repairer supervisor that physician will be placing wound vac on patient and needs supplies in room for Sunday10/28/18.
--- NOTE | 2018-10-28 18:20 | NUR ---
Left a message with Dr. Amaral's answering service ([facility]) to contact Dr. Green to speak to him about medications patient was prescribed by ID during the most recent inpatient stay. I spoke with Dr. Lofton and let him know that they should be recieving a call on .
--- NOTE | 2018-10-28 18:58 | NUR ---
Fingal given per patient request for c/o chronic neck pain. Will monitor.
[2018-10-28 20:00] VITALS: BP 95/59
--- NOTE | 2018-10-28 22:00 | NUR ---
PATIENT EASILY AWOKE, DENIES ANY PAIN AT THIS TIME. PATIENT REFUSED TO TAKE LOPRESSOR. BP 95/59, HR 88. STATED IT MAKES HIM TOO TIRED WHEN HIS BP IS LOW. PATIENT LEFT WITH CALL LIGHT IN REACH.
--- NOTE | 2018-10-28 23:02 | NUR ---
24 HR chart check completed.
[2018-10-29] VITALS: BP 105/60
--- NOTE | 2018-10-29 03:30 | NUR ---
[facility](WOUND CARE) NOTIFIED OF THE NEED FOR WOUND VAC AND SUPPLIES. SHE WILL TAKE CARE OF IT.
[2018-10-29 06:10] LABS: BASO # 0.1 10*3/uL (0.0-0.1); BASO % 0.7 % (0.0-1.0); EOS # 0.9 10*3/uL (0.0-0.4); EOS % 9.8 % (1.0-4.0); HEMATOCRIT 32.1 % (42.0-52.0); HEMOGLOBIN 9.5 g/dl (14.0-18.0); LYMPH # 1.4 10*3/uL (1.3-4.4); LYMPH % 15.5 % (27.0-41.0); MEAN CELL VOLUME 87.5 fl (80.0-94.0); MEAN CORPUSCULAR HGB 25.9 pg (27.0-31.0); MEAN CORPUSCULAR HGB CONC 29.6 g/dl (33.0-37.0); MONO # 0.9 10*3/uL (0.1-1.0); MONO % 9.7 % (3.0-9.0); NEUT # 5.6 10*3/uL (2.3-7.9); NEUT % 63.7 % (47.0-73.0); PLATELET COUNT AUTOMATED 241 10*3/uL (130-400); RED BLOOD COUNT 3.67 10*6/uL (4.50-5.90); RED CELL DISTRI WIDTH 21.2 % (0-14.5); WHITE BLOOD COUNT 8.8 10*3/uL (4.8-10.8)
[2018-10-29 06:19] LABS: ALBUMIN 2.8 gm/dl (3.1-4.5); POTASSIUM 4.8 mmol/L (3.5-5.1)
[2018-10-29 06:21] LABS: CREATININE 2.28 mg/dL (0.70-1.30); TOTAL PROTEIN 8.2 gm/dL (6.4-8.2)
--- NOTE | 2018-10-29 07:51 | NUR ---
Upon discharge recommend patient to follow up for wound care in outpatient setting continue current wound care orders at discharging facility.
[2018-10-29 08:00] VITALS: BP 92/60
--- NOTE | 2018-10-29 10:19 | NUR ---
PT MEDICATED WITH PRN MEDICATION FOR PAIN 8/10 IN NECK.
--- NOTE | 2018-10-29 11:00 | NUR ---
PT IN BED WITH EYES CLOSED. NO S/S OF DISTRESS. PAIN MEDICATION EFFECTIVE.
--- NOTE | 2018-10-29 11:16 | NUR ---
PATIENT MEDICATED WITH NORCO AT THIS TIME PER ORDER FOR COMPLAINTS OF PAIN IN BACK AND KNEES. WILL MONITOR FOR EFFECTIVENESS.
--- NOTE | 2018-10-29 11:32 | NUR ---
Contacted [facility] in [place], faxed referral. they are revieing. Also contacted Alvina at [facility], she is also reviewing patient records to see if insurance denied LTACH recently. Will return call.
[2018-10-29 12:00] VITALS: BP 114/62
--- NOTE | 2018-10-29 13:16 | NUR ---
Contacted Alvina at [facility]. She stated when the patient was at the [facility] they tried to get approval for LTACH at [facility]. They made 10 plus appeals for LTACH and it was still denied. [facility] stated because the patient was then sent to a lower level of care ([facility]) and it failed in less than 24 hours, they may be able to get LTACH approved now. I faxed referral and will wait for auth.
--- NOTE | 2018-10-29 13:27 | NUR ---
Occupational Therapy evaluation completed on 5 with full eval to follow. PRecautions include multiple wounds and wound vac to be applied to buttock today,IVs,ileostomy,high complexity level [id number] via chart review, testing and evalaution. Recommend OT for establishment of OT BUE HEP with latex free theraband and LTACH for wound care and IV ABX. Thank you for this referral. Leana La OTR/L
--- NOTE | 2018-10-29 13:30 | NUR ---
UP TO ROOM TO TALK WITH FAMILY WITH [employer] TEAROOM HOST/HOSTESS. ASHER ASKING QUESTIONS ABOUT WHAT THE PLAN IS FOR DISCHARGE. INFORMED PT THAT ALL THE LOCAL FACILITIES HAD DENIED TO TAKE PT. TOLD THEM WE HAD SENT HIS REFERRAL TO [facility] [place] AND ALSO TO [facility]. FAMILY AGREEABLE TO PLAN. FAMILY STATES THEY ARE GOING TO CALL INSURANCE COMPANY TO SEE ABOUT PT GOING TO LTAC WHICH HAD BEEN DENIED WHEN HE WAS AT [facility]. WILL CONTINUE TO FOLLOW.
--- NOTE | 2018-10-29 14:00 | NUR ---
WOUND VAC PLACED TO COCCYX WOUND AT THIS TIME BY . PATIENT TOLERATED WELL.
--- NOTE | 2018-10-29 14:21 | NUR ---
PHYSICAL THERAPY Patient evaluated on 5, full evaluation to follow. D/C PT after evaluation. Defer to OT. Recommend daily ROM with nursing care. Yahir out of bed until wounds improved. PAtient is high complexity via chart review, tests and evaluation: [id number]. Thank you for this referral. Yeny Love,PT
[2018-10-29 16:00] VITALS: BP 113/59
--- NOTE | 2018-10-29 20:00 | NUR ---
PT IN BED WITH EYES CLOSED. AWAKENED EASILY TO VOICE. DENIES PAIN AT THIS TIME. ASSESSMENT COMPLETED. CALL LIGHT WITHIN REACH. BED ALARM ON.
[2018-10-29 20:01] VITALS: BP 107/53
[2018-10-30] VITALS: BP 119/75; BP 121/69
--- NOTE | 2018-10-30 | NUR ---
PT IN BED WITH EYES CLOSED. AWAKENED EASILY TO VOICE. PT STATED PAIN MEDICATION EFFECTIVE. CALL LIGHT WITHIN REACH. BED ALARM ON.
--- NOTE | 2018-10-30 03:54 | NUR ---
24 HOUR CHART CHECK COMPLETED
--- NOTE | 2018-10-30 03:57 | NUR ---
PT ASLEEP IN BED. NO S/S OF DISTRESS. CALL LIGHT WITHIN REACH. BED ALARM ON.
--- NOTE | 2018-10-30 06:15 | NUR ---
LABS DRAWN FROM PICC LINE PER ORDER. PT DENIES PAIN AT THIS TIME. CALL LIGHT WITHIN REACH. BED ALARM ON.
[2018-10-30 06:18] LABS: BASO # 0.1 10*3/uL (0.0-0.1); BASO % 0.7 % (0.0-1.0); EOS # 0.9 10*3/uL (0.0-0.4); EOS % 8.4 % (1.0-4.0); HEMATOCRIT 31.5 % (42.0-52.0); HEMOGLOBIN 9.3 g/dl (14.0-18.0); LYMPH # 1.5 10*3/uL (1.3-4.4); LYMPH % 14.2 % (27.0-41.0); MEAN CELL VOLUME 87.7 fl (80.0-94.0); MEAN CORPUSCULAR HGB 25.9 pg (27.0-31.0); MEAN CORPUSCULAR HGB CONC 29.5 g/dl (33.0-37.0); MEAN PLATELET VOLUME 8.8 fl (9.6-12.3); MONO # 0.8 10*3/uL (0.1-1.0); MONO % 7.8 % (3.0-9.0); NEUT % 68.1 % (47.0-73.0); PLATELET COUNT AUTOMATED 239 10*3/uL (130-400); RED BLOOD COUNT 3.59 10*6/uL (4.50-5.90); RED CELL DISTRI WIDTH 21.4 % (0-14.5); WHITE BLOOD COUNT 10.3 10*3/uL (4.8-10.8)
[2018-10-30 06:53] LABS: CREATININE 2.11 mg/dL (0.70-1.30); POTASSIUM 5.2 mmol/L (3.5-5.1)
[2018-10-30 08:00] VITALS: BP 92/44
--- NOTE | 2018-10-30 10:25 | NUR ---
OT NOTE Pt was seen this A.M. 1:1 for 25 minute OT session. Upon arrival pt was supine in bed. Pt identified by name and and had no complaints at this time. Pt was provided with a home exercise program for BUE and peach latex free theraband needed to increase and maintain UE strength needed for increased I in self care tasks, bed mobility, and functional transfers. Educated, demonstrated, and performed all exercises in the handout for 1 X 10. Educated pt on techniques for completing each set using theraband if nobody is around to hold the one end. Pt verbalized understanding. Pt was left supine in bed with call light in hand, tray table in place, and bed alarm activated for safety. Continue with rec D/C plan to LTACH or SNF. MARCELINO Pierce/Navneet
[2018-10-30 11:47] VITALS: BP 112/64
--- NOTE | 2018-10-30 12:00 | NUR ---
PT MEDICATED WITH ZOFRAN AT THIS TIME FOR COMPLAINTS OF NAUSEA. WILL MONITOR.
--- NOTE | 2018-10-30 12:40 | NUR ---
PER PATIENT, ZOFRAN HAS BEEN EFFECTIVE. NO FURTHER COMPLANITS AT THIS TIME.
[2018-10-30 16:00] VITALS: BP 113/67
--- NOTE | 2018-10-30 19:59 | NUR ---
PT AWAKE IN BED. DENIES PAIN AT THIS TIME. ASSESSMENT COMPLETED. CALL LIGHT WITHIN REACH. BED ALARM ON.
[2018-10-30 20:00] VITALS: BP 98/57
--- NOTE | 2018-10-30 21:55 | NUR ---
PT MEDICATED WITH PRN PAIN MEDICATION FOR PAIN 6/10 IN NECK. SEE SEP.
--- NOTE | 2018-10-30 22:35 | NUR ---
PT IN BED WITH EYES CLOSED. NO S/S OF DISTRESS. PAIN MEDICATION EFFECTIVE.
[2018-10-31] VITALS (9 sets, daily range): BP systolic 95–126; BP diastolic 48–70
--- NOTE | 2018-10-31 02:42 | NUR ---
24H CHART CHECK COMPLETED
[2018-10-31 06:30] LABS: BASO % 0.4 % (0.0-1.0); EOS # 0.8 10*3/uL (0.0-0.4); EOS % 7.1 % (1.0-4.0); HEMATOCRIT 31.1 % (42.0-52.0); HEMOGLOBIN 9.4 g/dl (14.0-18.0); LYMPH # 1.2 10*3/uL (1.3-4.4); MEAN CELL VOLUME 87.9 fl (80.0-94.0); MEAN CORPUSCULAR HGB 26.6 pg (27.0-31.0); MEAN CORPUSCULAR HGB CONC 30.2 g/dl (33.0-37.0); MEAN PLATELET VOLUME 9.1 fl (9.6-12.3); MONO # 0.9 10*3/uL (0.1-1.0); MONO % 7.8 % (3.0-9.0); NEUT # 8.2 10*3/uL (2.3-7.9); NEUT % 73.1 % (47.0-73.0); PLATELET COUNT AUTOMATED 256 10*3/uL (130-400); RED BLOOD COUNT 3.54 10*6/uL (4.50-5.90); RED CELL DISTRI WIDTH 21.8 % (0-14.5); WHITE BLOOD COUNT 11.2 10*3/uL (4.8-10.8)
[2018-10-31 07:02] LABS: CREATININE 2.06 mg/dL (0.70-1.30); POTASSIUM 4.9 mmol/L (3.5-5.1)
--- NOTE | 2018-10-31 07:36 | NUR ---
[facility] stated patient's insurance has denied LTACH; For a peer to peer, physician must call [phone] option 2- this will connect to Dr. Blackburn. Expedited appeal can be done by calling [phone]. This must be done by noon today 10/31/18. Message given to hospitalist group
--- NOTE | 2018-10-31 08:47 | NUR ---
MEDICATED WITH NORCO PER PRN ORDER FOR COMPLAINTS OF 9/10 NECK PAIN. WILL MONITOR FOR EFFECTIVENESS.
--- NOTE | 2018-10-31 09:45 | NUR ---
OT NOTE Pt was seen this A.M. 1:1 for 15 minute OT session. Upon arrival pt was supine in bed. Pt identified by name and and had complaints of neck pain which he would not rate on 0-10 scale. Requested for pt to perform home exercise program using peach non-latex theraband previously educated and provided with. Pt was able to perform all exercises with no verbal prompts or corrections. Pt performed all with good technique. Pt was left supine in bed with call light in hand, tray table in place, and bed alarm activated for safety. Continue with rec D/C plan to LTACH or SNF. MARCELINO Pierce/Navneet
--- NOTE | 2018-10-31 10:56 | NUR ---
PT OFF FLOOR FOR SURGERY AT THIS TIME.
--- NOTE | 2018-10-31 13:17 | NUR ---
TALKED WITH SONS AND UPDATED THEM THAT PT WAS DENIED AGAIN FOR LTAC AND THE ONLY NURSING FACILITY TO TAKE HIM IS [facility]. SONS ARE GOING TO TALK WITH FATHER WHEN HE COMES BACK FROM SURGERY AND WILL LET US KNOW WHAT THE DECISION IS. WILL CONTINUE TO FOLLOW.
--- NOTE | 2018-10-31 13:28 | NUR ---
Patient updated clinicals faxed to [facility] for precert and check the cost of the IV ATB. Patient came from [facility] short term, requires precert to return. Waiting on review and precert.
--- NOTE | 2018-10-31 13:34 | NUR ---
PT RETURNED FROM SURGERY AT THIS TIME.
--- NOTE | 2018-10-31 16:47 | NUR ---
Occupational Therapy DIscharge Note: Patient was assessed on 10/29/18 and goals established for home exercise program for BUE strengthening. Patient was seen for treatment 10/30 and 10/31/18 with goals met. Recommend discharge OT services with goals met. Thank you. Leana La OTR/l
--- NOTE | 2018-10-31 17:00 | NUR ---
DRESSINGS CHANGED TO BACK, HIP, LEFT FOOT PER ORDER. WOUND VAC INTACT WITH [employer].
--- NOTE | 2018-10-31 19:49 | NUR ---
PT IN BED WITH EYES CLOSED. AWAKENED EASILY TO VOICE. DENIES PAIN AT THIS TIME. ASSESSMENT COMPLETED. WOUND VAC OUTPUT AMOUNT AT 250CC. CALL LIGHT WITHIN REACH. BED ALARM ON.
--- NOTE | 2018-10-31 21:30 | NUR ---
PT MEDICATED WITH PRN PAIN MEDICATION FOR PAIN 6/10 IN BACK OF NECK. SEE MAR.
--- NOTE | 2018-10-31 23:07 | NUR ---
SPOKE WITH DR. MARKS REGARDING PT'S HR SUSTAINING 120'S-130'S. ORDER FOR STAT EKG.
--- NOTE | 2018-10-31 23:49 | NUR ---
SPOKE WITH DR. DONG REGARDING EKG. DR. DONG STATED HE WOULD READ EKG. VSS. PT IN NO DISTRESS. DENIES CHEST PAIN.
[2018-11-01] VITALS: BP 92/65
--- NOTE | 2018-11-01 04:54 | NUR ---
PT ASLEEP IN BED. NO S/S OF DISTRESS. CALL LIGHT WITHIN REACH. BED ALARM ON.
--- NOTE | 2018-11-01 05:36 | NUR ---
24H CHART CHECK COMPLETED
[2018-11-01 06:40] LABS: BASO % 0.5 % (0.0-1.0); EOS # 0.7 10*3/uL (0.0-0.4); EOS % 7.9 % (1.0-4.0); HEMATOCRIT 30.5 % (42.0-52.0); HEMOGLOBIN 8.7 g/dl (14.0-18.0); LYMPH # 1.4 10*3/uL (1.3-4.4); LYMPH % 15.8 % (27.0-41.0); MEAN CELL VOLUME 90.2 fl (80.0-94.0); MEAN CORPUSCULAR HGB 25.7 pg (27.0-31.0); MEAN CORPUSCULAR HGB CONC 28.5 g/dl (33.0-37.0); MEAN PLATELET VOLUME 9.3 fl (9.6-12.3); MONO # 0.8 10*3/uL (0.1-1.0); MONO % 8.6 % (3.0-9.0); NEUT # 5.8 10*3/uL (2.3-7.9); NEUT % 66.5 % (47.0-73.0); PLATELET COUNT AUTOMATED 232 10*3/uL (130-400); RED BLOOD COUNT 3.38 10*6/uL (4.50-5.90); RED CELL DISTRI WIDTH 22.3 % (0-14.5); WHITE BLOOD COUNT 8.7 10*3/uL (4.8-10.8)
[2018-11-01 06:56] LABS: CREATININE 1.95 mg/dL (0.70-1.30)
[2018-11-01 08:00] VITALS: BP 120/58
--- NOTE | 2018-11-01 11:17 | NUR ---
Arleen from [facility] stated they have had discussions with the family and all have agreed for patient to return to [facility] under the care of Dr. Osuna. Notified facility of need for the two IV ATB and faxed a copy of the script. Waiting for auth.
[2018-11-01 12:00] VITALS: BP 123/60
[2018-11-01 16:00] VITALS: BP 120/67
[2018-11-01 20:00] VITALS: BP 119/54
[2018-11-02] VITALS: BP 135/58
--- NOTE | 2018-11-02 02:42 | NUR ---
24 HR chart check completed.
--- NOTE | 2018-11-02 06:50 | NUR ---
UNABLE TO GET LABS FROM PATIENT AT THIS TIME FROM PICC. PATIENT STATES THIS IS WHERE THEY HAVE BEEN DRAWING FROM. PATIENT REFUSING TO BE STUCK. NOTIFIED DR. DONG AND TOLD THE PATIENT WE WOULD TRY AGAIN LATER AFTER HEPARIN WAS GIVEN
--- NOTE | 2018-11-02 06:50 | NUR ---
PAGED DR. VERA AT THIS TIME
--- NOTE | 2018-11-02 07:15 | NUR ---
SPOKE WITH DR. VERA. NOTIFIED HIM OF NEW CONSULT. STATED THAT THIS MORNING ABOUT 5 MINUTES AFTER ATTEMPTING TO DRAW BLOOD FROM THE PATIENTS PICC LINE, AND WAS NOT ABLE TO GET IT, A CALL WAS RECIEVED FROM [employer] THAT THE PATIENTS HEART RATE HAD DROPPED TO THE 20'S. NOTIFIED DR. VERA THAT THE PATIENT THE DAY PRIOR HAD HAD ISSUES WITH HIS HEART RATE BEING TOO HIGH, BECAUSE HIS AMIODARONE AND LOPRESSOR HAD BEEN OFF AND ON HELD DUE TO THE PATIENTS BLOOD PRESSURE RUNNING ON THE LOWER SIDE. AND THE PATIENTS HEART RATE INCREASE TO THE 130'S-140'S. DR. VERA NOTIFIED THAT EKG WAS OBTAINED AT 0650. NOTIFIED DR. VERA THAT PATIENTS HEART RATE REMAINS IN THE 30'S-40'S AND PATIENT REMAINS ASYMPTOMATIC AND WASN'T EVEN AWARE IN THE DROP IN PULSE TO THE 20'S. DR. VERA ORDERED ANOTHER EKG AND TO HOLD THE PATIENTS LOPRESSOR THIS MORNING AND THAT HE WILL SEE HIM LATER
--- NOTE | 2018-11-02 07:50 | NUR ---
PATIENT AT THIS TIME BACK TO A HEART RATE OF 70'S-80'S
[2018-11-02 08:00] VITALS: BP 118/58
[2018-11-02 12:00] VITALS: BP 116/64
--- NOTE | 2018-11-02 12:38 | NUR ---
DR VERA IN TO SEE PT. HE STATES HE NEEDS TO HAVE A PACEMAKER AND NEEDS TO BE TRANSFERRED. DR HARDEN NOTIFIED.
--- NOTE | 2018-11-02 15:00 | NUR ---
DISCHARGE WOUND PHOTOS AND WOUND DRSG CHANGES COMPLETED.
--- NOTE | 2018-11-02 17:20 | NUR ---
REPORT CALLED TO DEBI AT [facility].
--- NOTE | 2018-11-02 18:31 | NUR ---
Discharge instructions reviewed with patient/family. Patient receptive and verbalizes understanding. Follow-up care arranged. Written instructions given to patient/family. [facility] HERE TO TRANSPORT PT. REPORT GIVEN. ZAINA CASTRO
[2018-11-14] MEDS ORDERED: MERREM IV500 MG IV (23:15)
== END 2018-11-02 18:31 | disposition short-term general hospital (02) | DRG 70 ==
LOC: ED 15:35 → 5E 18:39 → EDHOLD 18:39 → 5E 19:09
PROVIDERS: Emergency Medicine; Family Medicine; Internal Medicine; ADMIT Internal Medicine
PROC: 0JPT0XZ Removal of Tunneled Vascular Access Device from Trunk Subcutaneous Tissue and Fascia, Open Approach (ICD-10-PCS; principal; 2018-11-01)
DX: G93.41 Metabolic encephalopathy (principal); L89.154 Pressure ulcer of sacral region, stage 4; N18.6 End stage renal disease; M46.28 Osteomyelitis of vertebra, sacral and sacrococcygeal region; G93.1 Anoxic brain damage, not elsewhere classified; N39.0 Urinary tract infection, site not specified; E44.0 Moderate protein-calorie malnutrition; N17.9 Acute kidney failure, unspecified; T83.510A Infection and inflammatory reaction due to cystostomy catheter, initial encounter; I48.92 Unspecified atrial flutter; G95.11 Acute infarction of spinal cord (embolic) (nonembolic); Z66 Do not resuscitate; Z51.5 Encounter for palliative care; S31.000A Unspecified open wound of lower back and pelvis without penetration into retroperitoneum, initial encounter; L89.222 Pressure ulcer of left hip, stage 2; L89.322 Pressure ulcer of left buttock, stage 2; L89.310 Pressure ulcer of right buttock, unstageable; I45.10 Unspecified right bundle-branch block; I48.91 Unspecified atrial fibrillation; Y83.8 Other surgical procedures as the cause of abnormal reaction of the patient, or of later complication, without mention of misadventure at the time of the procedure; L89.212 Pressure ulcer of right hip, stage 2; L89.132 Pressure ulcer of right lower back, stage 2; E11.22 Type 2 diabetes mellitus with diabetic chronic kidney disease; I44.0 Atrioventricular block, first degree; D64.9 Anemia, unspecified; D72.829 Elevated white blood cell count, unspecified; Z88.5 Allergy status to narcotic agent; Z88.6 Allergy status to analgesic agent; Z93.3 Colostomy status; Z87.891 Personal history of nicotine dependence; Z79.1 Long term (current) use of non-steroidal anti-inflammatories (NSAID); Z79.51 Long term (current) use of inhaled steroids; Z79.899 Other long term (current) drug therapy; Y92.89 Other specified places as the place of occurrence of the external cause; Z79.4 Long term (current) use of insulin; Z83.3 Family history of diabetes mellitus; Z82.49 Family history of ischemic heart disease and other diseases of the circulatory system

== ENCOUNTER 2018-11-20 19:09 | Inpatient (IN) | payer MEDICARE ==
[~2018-11-20] VITALS: Ht 185.4 cm; Wt 103.4 kg
--- NOTE | ~2018-11-20 | CON ---
[employer], [place] REPORT OF CONSULTATION NAME: MORALES REA UNIT #: [id number] ROOM: 410 DOCTOR: BENITA GARCES MD BIRTHDATE: [birth year] DOS: 11/22/2018 REASON FOR CONSULTATION: Sacral wound. HISTORY OF PRESENTING ILLNESS: This is a 68-year-old male well known to me from his last admission and he is presenting from [facility] with concern of sacral wound getting infected. He is experiencing chills, nausea and overall tired. He had a prolonged hospitalization in last few months. He has a sacral decubitus ulcer, which he has developed as he is a paraplegic after spinal cord injury and he has undergone a diverting loop colostomy and suprapubic catheter placement at [facility] on 10/23/2018. He had a prolonged hospitalization where he ended up having debridement of his sacral decubitus ulcers, partial ostectomy and his cultures at that time grew MRSA, ESBL E. coli, Pseudomonas as well as VRE. He was discharged on linezolid and meropenem to a custodial where he stayed briefly and was readmitted at [facility] 11/22/2018 and I decided to change his linezolid to daptomycin and continue the meropenem to complete his course of antibiotics for his osteomyelitis as planned. Please refer to the previous consult note for details. It was decided to complete his course of antibiotics for 6 weeks from 10/23/2018, which would be until 12/03/2018. After his brief stay at [facility], he was transferred to [facility] for a pacemaker placement and after that he got transferred to [facility] where he was concerned about his poor care and eventually leading to sacral decubitus ulcer getting infected. At this point he is afebrile. He did present with a WBC count of 15.1, which has resolved to 6.7 today. His ESR is 73. His C-reactive protein has not been checked. Blood culture is negative so far, which is from November 20. He is on meropenem currently. ID has been consulted for further management. PAST MEDICAL HISTORY: COPD, diabetes, osteomyelitis, sacral decubitus ulcer as mentioned above, spinal stroke, GERD. PAST SURGICAL HISTORY: Appendectomy, colon resection, colostomy, nose reconstruction, multiple debridements of sacral wound, ostectomy, diverting colostomy and suprapubic catheter placement as mentioned above. FAMILY HISTORY: Unknown. SOCIAL HISTORY: Former smoker, nonalcoholic. No illicit drug use. MEDICATIONS: Noted. REVIEW OF SYSTEMS: A 12-point review of systems has been done. Pertinent negatives and positives included in HPI, rest are noncontributory. PHYSICAL EXAMINATION: VITAL SIGNS: Noted, stable. GENERAL: The patient is alert, oriented x 3, not in acute distress. HEENT: Atraumatic, normocephalic. PERRLA. EOMI. RESPIRATORY: Air entry bilaterally equal. No wheeze or crackles. HEART: S1, S2 normal. [employer], [place] REPORT OF CONSULTATION NAME: MORALES REA UNIT #: [id number] ROOM: 410 [facility] [birth year] ABDOMEN: Soft, nontender, nondistended. Bowel sounds present. Colostomy bag noted as well. Suprapubic catheter site around has dryness and redness, likely from leakage. EXTREMITIES: Sacral decubitus ulcer grossly infected with purulent drainage and undermining of the edges. There is surrounding redness. LABORATORY DATA AND IMAGING: Noted and mentioned in HPI. ASSESSMENT: 1. Acute infection of sacral decubitus ulcer along with osteomyelitis of the coccygeal bone. The patient was already getting daptomycin and meropenem for his osteomyelitis of his coccygeal bone. His cultures from 10/03/2018 were growing extended spectrum beta lactamase Escherichia coli, on meropenem, as well as methicillin-resistant Staphylococcus aureus and vancomycin-resistant enterococci. He was supposed to complete his 6 weeks of course, which would be 12/03/2018. 2. Sepsis from above. PLAN: At this time, restart daptomycin, continue meropenem. He needs extensive wound debridement. Send for cultures, both aerobic, anaerobic, fungal. He would need wound care. Surgery has been consulted and may get benefit from a wound VAC. I would highly suggest to look for an LTAC placement as he has not been getting the appropriate care for his wound at the current custodial, follow up serial ESR and CRP weekly. I will follow the patient closely. Thank you for your consult. Please call for any questions. Benita Garces MD CM:CONSTR:REPORT OF CONSULTATION 1030 11/22/18 1448 interface
--- NOTE | ~2018-11-20 | EKG ---
[place], [place] ELECTROCARDIOGRAM REPORT NAME: MORALES REA UNIT #: [id number] ROOM: 410 DOCTOR: CINTHIA DRAFT REPORT BIRTHDATE: [birth year] [facility] Test Date: 2018-11-20 Test Time: 20:06:21 Pat Name: MORALES REA Department: Room: 410 Gender: M Leaf Blender: Vipul Reyes : 1950 Requested By: SLIME WHALEY PA-C Order Number: [id number] Reading MD: Elizabeth Morrison MD Measurements Intervals [place] Rate: 99 P: 48 VA: 194 QRS: -86 QRSD: 150 T: 80 QT: 380 QTc: 488 Interpretive Statements Sinus rhythm RBBB and LAFB Baseline wander in lead(s) II,III,aVF Compared to ECG 11/02/2018 07:29:14 No significant changes Electronically Signed On 11-22-2018 6:37:07 PDT by Elizabeth Morrison MD CM:EKGRPT:ELECTROCARDIOGRAM REPORT 05 SLIME WHALEY PA-C EPIPHANY DRAFT REPORT SLIME WHALEY PA-C
[~2018-11-20 19:09] MED LIST changes: +ALBUTEROL2.5 MG/0.5 NEB; +AMIODARONE HYD200 MG PO; +BANOPHEN25 MG PO; +BUPROPION HYDR100 MG PO; +CLARITIN10 MG PO; +CLONIDINE HCL0.1 MG PO; +DULCOLAX STOOL100 M1 PO; +ELIQUIS5 M1 PO; +FLONASE ALLERG9.9 ML NAS; +GLUCAGON EMERGEN1 M1 IM; +GLUTOSE 1537.5 GM PO; +IRON325 M1 PO; +LEVEMIR FL100 UNIT/1 SQ; +MAG-AL PLUS 3030 ML PO; +MERREM IV500 MG IV; +MIRALAX POWDER17 G1 PO; +NOVOLOG FL100 UNIT/1 SQ; +PANTOPRAZOLE SO40 MG PO; +TYLENOL325 M1 PO
[2018-11-20 19:13] VITALS: BP 103/53
[2018-11-20 19:44] LABS: BILIRUBIN NEGATIVE (NEGATIVE); BLOOD TRACE-INTACT (NEGATIVE); CLARITY CLOUDY (CLEAR); COLOR YELLOW (YELLOW); GLUCOSE NEGATIVE (NEGATIVE); KETONE NEGATIVE (NEGATIVE); LEUKO ESTERASE 1+ (NEGATIVE); NITRITE NEGATIVE (NEGATIVE); PH 5.5 (5.0-9.0); UROBILINOGEN 0.2 E.U./dl (0.2-1.0)
[2018-11-20 19:51] LABS: YEAST 4+
[2018-11-20 19:52] LABS: BACTERIA 2+; RBC 0-2 rbc/hpf (0-2)
[2018-11-20 20:29] LABS: BASO % 0.2 % (0.0-1.0); EOS # 0.5 10*3/uL (0.0-0.4); EOS % 3.2 % (1.0-4.0); HEMATOCRIT 28.6 % (42.0-52.0); HEMOGLOBIN 9.1 g/dl (14.0-18.0); LYMPH # 0.8 10*3/uL (1.3-4.4); LYMPH % 5.2 % (27.0-41.0); MEAN CELL VOLUME 93.8 fl (80.0-94.0); MEAN CORPUSCULAR HGB 29.8 pg (27.0-31.0); MEAN CORPUSCULAR HGB CONC 31.8 g/dl (33.0-37.0); MEAN PLATELET VOLUME 8.9 fl (9.6-12.3); MONO # 0.9 10*3/uL (0.1-1.0); MONO % 5.7 % (3.0-9.0); NEUT # 12.8 10*3/uL (2.3-7.9); NEUT % 85.2 % (47.0-73.0); PLATELET COUNT AUTOMATED 219 10*3/uL (130-400); RED BLOOD COUNT 3.05 10*6/uL (4.50-5.90); RED CELL DISTRI WIDTH 25.6 % (0-14.5); WHITE BLOOD COUNT 15.1 10*3/uL (4.8-10.8)
--- NOTE | 2018-11-20 20:32 | NUR ---
PATIENT REPORTS NECK AND ARM PAIN REQUESTS NARCOTIC PAIN MEDICATION.
--- NOTE | 2018-11-20 20:36 | NUR ---
WILL ADMINISTER 400ML BOLUS AT THIS TIME AND RE-ASSESS PATIENT DUE TO HISTORY OF ANEMIA AND CHRONIC KIDNEY DISEASE.
[2018-11-20 20:38] LABS: INTERNATIONAL NORM RATIO 1.1 (2.0-3.5)
[2018-11-20 20:45] LABS: ALBUMIN 2.7 gm/dl (3.1-4.5); ALKALINE PHOSPHATASE 89 U/L (45-117); BUN 31 mg/dl (7-24); CHLORIDE 103 mmol/L (98-107); CREATININE 1.39 mg/dL (0.70-1.30); POTASSIUM 4.7 mmol/L (3.5-5.1); SGOT/AST 11 IU/L (3-35); SGPT/ALT 18 U/L (12-78); SODIUM 137 mmol/L (136-145); TOTAL PROTEIN 6.9 gm/dL (6.4-8.2)
[2018-11-20 20:47] VITALS: BP 108/64
--- NOTE | 2018-11-20 20:50 | NUR ---
PATIENT PLACED ON LEFT SIDE WITH PILLOW UNDER RIGHT LOWER BACK/BUTTOCKS
[2018-11-20 21:16] VITALS: BP 114/54
--- NOTE | 2018-11-20 21:16 | NUR ---
PATIENT REPORTS IMPROVEMENT IN NAUSEA AND PAIN.
--- NOTE | 2018-11-20 22:03 | NUR ---
DISCUSSION WITH DENISA WHALEY AT THIS TIME. WILL DECLINE TO ADMINISTER 30ML/KG IV FLUID BOLUS DO NOT FEEL IT IS APPROPRIATE FOR THIS PATIENT GIVEN RENAL STATUS AND OVERALL VITAL SIGNS AT THIS TIME.
--- NOTE | 2018-11-20 22:05 | NUR ---
PATIENT POSITIONED ONTO RIGHT SIDE.
--- NOTE | 2018-11-20 22:07 | NUR ---
PATIENT WILL RECEIVE REMAINDER OF 1 LITER INITIAL BOLUS.
--- NOTE | 2018-11-20 22:22 | NUR ---
FAVIAN MCDONALD NOTIFIED OF PATIENT ADMISSION. SPOKE WITH
[2018-11-20 22:50] VITALS: BP 107/44
--- NOTE | 2018-11-20 22:50 | NUR ---
A 68, admitted to , under the services of CADY Ayala DO with a diagnosis of SEPSIS. WOUND. Chief complaint is WOUND. Patient arrived via OTHER from ER. Monitor applied. Initial assessment completed. Vital signs taken and recorded. CADY AYALA DO notified of admission to the unit. Orders received. See assessment for past medical history, medications and allergies. Patient and/or family oriented to unit. [facility]. Clothing/patient valuable form completed. ISABEL DEXTER
[2018-11-20] MEDS ORDERED: VITAMIN C500 M4 PO (23:02)
[2018-11-20] MEDS ORDERED: ASPIRIN81 M1 PO (23:03)
--- NOTE | 2018-11-20 23:03 | NUR ---
PATIENT COMES WITH WOUNDS FROM ED. COCCYX WOUND OPEN AND TUNNELING NOTED. MULTIPLE SKIN AREAS AROUND BUTTOCK THAT SEEM TO BE OPEN. WILL WAIT FOR [facility] WOUND CARE NURSE TO COME AND ASSESS WOUNDS.
[2018-11-20] MEDS ORDERED: COREG6.25 MG PO (23:04)
[2018-11-20] MEDS ORDERED: DULCOLAX10 M1 R (23:05)
[2018-11-20] MEDS ORDERED: LANTUS SOL100 UNIT/1 SQ (23:08)
[2018-11-20] MEDS ORDERED: MILK OF MA400 MG/5 M PO (23:17)
[2018-11-20] MEDS ORDERED: THERAGRAN-M PR1 EACH PO (23:20)
[2018-11-20] MEDS ORDERED: B-121000 MCG PO (23:22)
[2018-11-20] MEDS ORDERED: ZINC-220220 MG PO (23:24)
[2018-11-20] MEDS ORDERED: ZOFRAN4 MG PO (23:27)
[2018-11-20] MEDS ORDERED: ZYVOX600 MG PO (23:32)
--- NOTE | 2018-11-21 00:49 | NUR ---
WAITING FOR ZYSABELOX FROM RESEARCH & ANALYTICS MANAGER.
--- NOTE | 2018-11-21 04:15 | NUR ---
PRN PAIN MEDICATION GIVEN D/T PATIENT COMPLAINING OF PAIN IN LEFT UPPER ARM. NO SIGNS OR SYMPTOMS FO DISTRESS. SEE EMAR FOR MEDICATION INFORMATION.
--- NOTE | 2018-11-21 05:53 | NUR ---
MORALES REA [id number] Please refer to the physician's history and physical for past medical history, comorbid conditions, and allergies. Diagnosis: SACRAL WOUND SEPSIS Pedro Score: 11,HIGH RISK WOUND DESCRIPTIONS: Wound Number: 1 Location of the wound: coccyx Type of wound: stage 4 Thickness: Full Size: 6.5cm x 7.5cm x 3.4cm Tunneling: none Underminin.7cm at 9 o'clock, 2.1cm at 12 o'clock, 5.0cm at 2-3 o'clock Sinus Tract: none Presence of Exudate: Serosanguineous Amount: Moderate Color: Yellow, red Odor: None Periwound Skin Appearance: Erythema several partial thickness area noted within the 45cm x 60cm x 0.1cm red blanchable areas noted surrounding coccyx wound Wound edges: epibole Pain (associated with wound): none at time of assessment How does patient state this happened? pt stated he had this about 1 year Wound Number: 2 Location of the wound: right buttocks Type of wound: stage 3 Thickness: Full Size: 0.6cm x 0.5cm x 0.1cm Tunneling: none Undermining: none Sinus Tract: none Presence of Exudate: Serosanguineous Amount: Light Color: Yellow, red Odor: None Periwound Skin Appearance: Normal Wound edges: approximated Pain (associated with wound): none at time of assessment How does patient state this happened? pt stated he had this about 1 year Wound Number: 3 Location of the wound: left top of foot Type of wound: DTI Size: 0.6cm x 0.8cm x <0.1cm Tunneling: none Undermining: none Sinus Tract: none Presence of Exudate: none Amount: None Color: Purple, red Odor: None Periwound Skin Appearance: Normal Wound edges: closed Pain (associated with wound): none at time of assessment How does patient state this happened? pt unsure when this happened Wound Number: 4 Location of the wound: plantar aspect base of right great toe Type of wound: unstageable Thickness: Full Size: 1.1cm x 1.1cm x <0.1cm Tunneling: none Undermining: none Sinus Tract: none Presence of Exudate: Amount: None Color: Brown Odor: None Periwound Skin Appearance: Normal Wound edges: approximated Pain (associated with wound): none at time of assessment How does patient state this happened? pt unsure when this happened Surface the patient is resting on: Isoflex SKIN PREVENTION RECOMMENDATION: 1. Pressure redistribution support surface as appropriate 2. Elevate heels 3. Remove boots/TEDS every shift and reapply 4. Head of bed 30 degrees as tolerated 5. Assess nutrition and hydration 6. Manage moisture 7. Avoid the use of containment devices while in bed 8. Use absorptive products on surfaces limit layers of linens on bed 9. Turn and reposition every 1-2 hours in bed and every 1 hour in chair as tolerated 10. Weight shifts every 15 minutes while up in chair 11. Offloading with pillows or device to keep heels elevated off bed 12. Monitor skin at least every shift 13. Inspect under medical devices twice a day WOUND TREATMENT RECOMMENDATIONS: Consult Dr. Schumacher since patient is known to him from last admission. Stage 4 guidelines: Cleanse coccyx with nss and apply calazime around the wound therahoney to wound bed then lightly pack with maxorb II and cover with abd pab and mesh undergarments. Stage 3 guidelines: Cleanse right buttocks with nss and apply calazime around the wound therahoney to wound bed and cover with abd pad along with coccyx wound. Full thickness guidelines: Cleanse right great toe plantar aspect with nss and apply sureprep around the wound therahoney to wound bed and cover with large bandaid. DTI guidelines: apply sureprep to left top of foot and cover with optifoam gentle. wheelchair cushion when oob. Heel raiser pro boots while in bed to bilateral feet.
--- NOTE | 2018-11-21 06:11 | NUR ---
Dr. Randall and Dr. Maxwell notified of wound care recommendations.
--- NOTE | 2018-11-21 06:29 | NUR ---
DR. AGUDELO FILLER FEEDER FOR DR. GARCES. DR. AGUDELO PAGED AT THIS TIME
[2018-11-21 06:47] LABS: BASO % 0.5 % (0.0-1.0); EOS # 0.4 10*3/uL (0.0-0.4); HEMATOCRIT 23.5 % (42.0-52.0); HEMOGLOBIN 7.3 g/dl (14.0-18.0); LYMPH # 0.9 10*3/uL (1.3-4.4); LYMPH % 11.1 % (27.0-41.0); MEAN CELL VOLUME 94.8 fl (80.0-94.0); MEAN CORPUSCULAR HGB 29.4 pg (27.0-31.0); MEAN CORPUSCULAR HGB CONC 31.1 g/dl (33.0-37.0); MEAN PLATELET VOLUME 9.2 fl (9.6-12.3); MONO # 0.7 10*3/uL (0.1-1.0); MONO % 8.1 % (3.0-9.0); NEUT # 6.3 10*3/uL (2.3-7.9); NEUT % 74.9 % (47.0-73.0); PLATELET COUNT AUTOMATED 167 10*3/uL (130-400); RED BLOOD COUNT 2.48 10*6/uL (4.50-5.90); RED CELL DISTRI WIDTH 25.8 % (0-14.5); WHITE BLOOD COUNT 8.4 10*3/uL (4.8-10.8)
[2018-11-21 07:26] LABS: CHLORIDE 113 mmol/L (98-107)
[2018-11-21 07:34] LABS: BUN 23 mg/dl (7-24); CREATININE 0.97 mg/dL (0.70-1.30)
[2018-11-21 07:39] LABS: SODIUM 143 mmol/L (136-145)
[2018-11-21 07:41] LABS: POTASSIUM 3.3 mmol/L (3.5-5.1)
--- NOTE | 2018-11-21 07:50 | NUR ---
PHYSICAL THERAPY Nursing screen received. PT orders also received. Thank you. Yeny Love,PT
--- NOTE | 2018-11-21 08:03 | NUR ---
DR BRANDON AWARE OF CONSULT. STATES HE WILL SEE PATIENT THIS MORNING.
--- NOTE | 2018-11-21 08:20 | NUR ---
Upon discharge recommend patient to follow up for wound care in outpatient setting continue current wound care orders at discharging facility.
--- NOTE | 2018-11-21 09:59 | NUR ---
Dr. Erwin notified of wound care recommendations.
--- NOTE | 2018-11-21 10:49 | NUR ---
PHYSICAL THERAPY Patient not appropriate for PT services at this time. Patient does not get out of bed chornically due to wounds. Recommend daily ROM with nursing care to (Roya)LE. Sinclair out of bed via nursing staff when wounds appropriate to progress. Both advised acitivites are not PT skills. D/c PT orders at this time. Thank you for this referral. Yeny Love,PT
--- NOTE | 2018-11-21 11:14 | NUR ---
PT IS CURRENTLLY SNF STAY OF [facility]. PT STATES HE WILL NOT GO BACK THERE. DC PLASTICS NURSE INFORMED. NO OTHER NEEDS AT THIS TIME. WILL CONTINUE TO FOLLOW.
--- NOTE | 2018-11-21 11:31 | NUR ---
Received message from Linda, the Data Security Analyst at [facility] stating she heard this patients son was telling staff in [place] the patient received horrible care at [facility] and will not return there. Linda stated this patient was already in terrible shape when he first arrived to their facility and was denied LTACH several times prior. She is stating patient did not received poor care. Patient and family were denied jail from other local facilities for the same reason. Unsure of discharge plan at this time.
[2018-11-21 12:00] VITALS: BP 112/74
[2018-11-21 12:12] LABS: BILIRUBIN NEGATIVE (NEGATIVE); BLOOD TRACE-INTACT (NEGATIVE); CLARITY CLOUDY (CLEAR); COLOR YELLOW (YELLOW); GLUCOSE NEGATIVE (NEGATIVE); KETONE NEGATIVE (NEGATIVE); LEUKO ESTERASE 1+ (NEGATIVE); NITRITE NEGATIVE (NEGATIVE); PH 5.5 (5.0-9.0); UROBILINOGEN 0.2 E.U./dl (0.2-1.0)
[2018-11-21 12:17] LABS: BASO % 0.4 % (0.0-1.0); EOS # 0.5 10*3/uL (0.0-0.4); EOS % 6.6 % (1.0-4.0); HEMATOCRIT 25.7 % (42.0-52.0); HEMOGLOBIN 8.1 g/dl (14.0-18.0); LYMPH # 0.9 10*3/uL (1.3-4.4); LYMPH % 11.3 % (27.0-41.0); MEAN CELL VOLUME 94.5 fl (80.0-94.0); MEAN CORPUSCULAR HGB 29.8 pg (27.0-31.0); MEAN CORPUSCULAR HGB CONC 31.5 g/dl (33.0-37.0); MEAN PLATELET VOLUME 8.7 fl (9.6-12.3); MONO # 0.7 10*3/uL (0.1-1.0); MONO % 9.2 % (3.0-9.0); NEUT # 5.5 10*3/uL (2.3-7.9); NEUT % 72.1 % (47.0-73.0); PLATELET COUNT AUTOMATED 170 10*3/uL (130-400); RED BLOOD COUNT 2.72 10*6/uL (4.50-5.90); RED CELL DISTRI WIDTH 25.7 % (0-14.5); WHITE BLOOD COUNT 7.6 10*3/uL (4.8-10.8)
[2018-11-21 12:26] LABS: BACTERIA 3+; MUCOUS 1+; WBC TNTC wbc/hpf (0-5); YEAST 1+
--- NOTE | 2018-11-21 13:33 | NUR ---
Occupational Therapy referral received and screen completed. Patient has large chronic sacral decubitus ulcer, colostomy, suprapubic catheter with ESRD and bedbound at halfway. At this time Occupational Therapy is not appropriate. Discharge OT referral. Thank you. Leana La OTR/Navneet
--- NOTE | 2018-11-21 15:09 | NUR ---
PATIENT RECEIVED NORCO FOR CHRONIC LEFT SHOULDER PAIN RATED 7/10.
[2018-11-21 16:00] VITALS: BP 114/50
--- NOTE | 2018-11-21 16:23 | NUR ---
Nursing screen received. Occupational THerapy referral received. Leana La OTR/L
[2018-11-21 20:00] VITALS: BP 113/57
[2018-11-22] VITALS: BP 117/57
[2018-11-22 06:21] LABS: BASO % 0.3 % (0.0-1.0); EOS # 0.5 10*3/uL (0.0-0.4); EOS % 7.6 % (1.0-4.0); HEMATOCRIT 25.8 % (42.0-52.0); LYMPH % 14.5 % (27.0-41.0); MEAN CELL VOLUME 95.2 fl (80.0-94.0); MEAN CORPUSCULAR HGB 29.5 pg (27.0-31.0); MEAN PLATELET VOLUME 8.8 fl (9.6-12.3); MONO # 0.7 10*3/uL (0.1-1.0); NEUT # 4.5 10*3/uL (2.3-7.9); PLATELET COUNT AUTOMATED 168 10*3/uL (130-400); RED BLOOD COUNT 2.71 10*6/uL (4.50-5.90); RED CELL DISTRI WIDTH 25.4 % (0-14.5); WHITE BLOOD COUNT 6.7 10*3/uL (4.8-10.8)
[2018-11-22 06:34] LABS: BUN 24 mg/dl (7-24); CHLORIDE 109 mmol/L (98-107); CREATININE 1.06 mg/dL (0.70-1.30); SODIUM 141 mmol/L (136-145)
[2018-11-22 06:37] LABS: POTASSIUM 4.4 mmol/L (3.5-5.1)
[2018-11-22 08:00] VITALS: BP 128/72
[2018-11-22 12:00] VITALS: BP 118/76
--- NOTE | 2018-11-22 12:09 | NUR ---
WOUND VAC APPLIED AT THIS TIME. 2 PIECES OF FOAM APPLIED. SUCTION AT 125.
--- NOTE | 2018-11-22 12:10 | NUR ---
Dr. Schumacher in to discuss plan of care for this patient, he is stating Dr. Cervantes would like patient to go to LTACH. Patient has been referred to [facility] multiple times with denials each time. Contacted [facility] and made referral. Will require precert.
[2018-11-22 16:00] VITALS: BP 141/69
[2018-11-22 20:00] VITALS: BP 133/61
[2018-11-23] VITALS: BP 131/71
--- NOTE | 2018-11-23 03:59 | NUR ---
24 HR chart check completed.
--- NOTE | 2018-11-23 07:46 | NUR ---
24 HR chart check completed.
[2018-11-23 08:00] VITALS: BP 130/80
[2018-11-23 12:00] VITALS: BP 130/64
[2018-11-23 16:00] VITALS: BP 135/68
--- NOTE | 2018-11-23 16:46 | NUR ---
PATIENT HAS A NEW WOUND TO RIGHT LOWER BACK. DR. GASTON AND FRANK ROMERO RN NOTIFIED. NEW ORDERS RECEIVED FOR DRESSING CHANGE. DR. GASTON ALSO, NOTIFIED OF HARD STOOL IN COLOSTOMY. HE SAID GIVE PRN DOSE OF COLACE AT THIS TIME.
--- NOTE | 2018-11-23 16:54 | NUR ---
COLACE GIVEN FOR HARD STOOL IN COLOSTOMY.
[2018-11-23 20:00] VITALS: BP 128/59
--- NOTE | 2018-11-23 21:05 | NUR ---
PT GIVEN HS MEDS AT THIS TIME, TAKEN WITH EASE. RESPIRATIONS EASY AND UNLABORED ON ROOM AIR. PT GIVEN NORCO FOR C/O BODY ACHES, PT ALSO GIVEN COLACE FOR HARD STOOL IN COLOSTOMY. WILL MONITOR FOR EFFECTIVENESS. CALL LIGHT IN REACH.
--- NOTE | 2018-11-23 22:05 | NUR ---
AMANDA EFFECTIVE PER PT.
[2018-11-24] VITALS: BP 133/66
--- NOTE | 2018-11-24 04:58 | NUR ---
PT GIVEN NORCO AT THIS TIME FOR C/O GENERALIZED PAIN. BLOOD SUGAR OBTAINED AND WNL. NO COVERAGE NEEDED. ALL OTHER AM MEDICATIONS TAKEN WITH EASE. WILL MONITOR FOR EFFECTIVENESS. CALL LIGHT IN REACH.
--- NOTE | 2018-11-24 05:58 | NUR ---
PT STATES THAT NORCO IS EFFECTIVE. CALL LIGHT IN REACH.
[2018-11-24 06:06] LABS: BASO % 0.5 % (0.0-1.0); EOS # 0.6 10*3/uL (0.0-0.4); HEMATOCRIT 28.1 % (42.0-52.0); HEMOGLOBIN 8.9 g/dl (14.0-18.0); LYMPH # 1.2 10*3/uL (1.3-4.4); LYMPH % 18.7 % (27.0-41.0); MEAN CELL VOLUME 94.3 fl (80.0-94.0); MEAN CORPUSCULAR HGB 29.9 pg (27.0-31.0); MEAN CORPUSCULAR HGB CONC 31.7 g/dl (33.0-37.0); MEAN PLATELET VOLUME 8.9 fl (9.6-12.3); MONO # 0.6 10*3/uL (0.1-1.0); MONO % 10.3 % (3.0-9.0); NEUT # 3.8 10*3/uL (2.3-7.9); NEUT % 60.9 % (47.0-73.0); PLATELET COUNT AUTOMATED 206 10*3/uL (130-400); RED BLOOD COUNT 2.98 10*6/uL (4.50-5.90); RED CELL DISTRI WIDTH 24.3 % (0-14.5); WHITE BLOOD COUNT 6.2 10*3/uL (4.8-10.8)
[2018-11-24 06:29] LABS: ALBUMIN 2.4 gm/dl (3.1-4.5); ALKALINE PHOSPHATASE 76 U/L (45-117); BUN 21 mg/dl (7-24); CHLORIDE 103 mmol/L (98-107); CREATININE 1.08 mg/dL (0.70-1.30); POTASSIUM 4.3 mmol/L (3.5-5.1); SGOT/AST 15 IU/L (3-35); SGPT/ALT 22 U/L (12-78); SODIUM 140 mmol/L (136-145); TOTAL PROTEIN 6.6 gm/dL (6.4-8.2)
[2018-11-24 08:00] VITALS: BP 130/72
[2018-11-24 12:00] VITALS: BP 138/65
[2018-11-24 16:00] VITALS: BP 143/73
[2018-11-24 20:00] VITALS: BP 130/62
[2018-11-25] VITALS: BP 132/64
--- NOTE | 2018-11-25 05:13 | NUR ---
NORCO GIVEN PER REQUEST FOR C/O NECK AND LT ARM PAIN/NEUROPATHY RATED 7/10 PER PT. WILL CONT TO MONITOR.
[2018-11-25 05:53] LABS: BASO % 0.7 % (0.0-1.0); EOS # 0.4 10*3/uL (0.0-0.4); EOS % 8.2 % (1.0-4.0); HEMATOCRIT 29.1 % (42.0-52.0); HEMOGLOBIN 8.9 g/dl (14.0-18.0); LYMPH # 1.3 10*3/uL (1.3-4.4); LYMPH % 24.3 % (27.0-41.0); MEAN CELL VOLUME 94.2 fl (80.0-94.0); MEAN CORPUSCULAR HGB 28.8 pg (27.0-31.0); MEAN CORPUSCULAR HGB CONC 30.6 g/dl (33.0-37.0); MEAN PLATELET VOLUME 9.1 fl (9.6-12.3); MONO # 0.6 10*3/uL (0.1-1.0); MONO % 10.8 % (3.0-9.0); NEUT % 55.3 % (47.0-73.0); PLATELET COUNT AUTOMATED 218 10*3/uL (130-400); RED BLOOD COUNT 3.09 10*6/uL (4.50-5.90); RED CELL DISTRI WIDTH 24.4 % (0-14.5); WHITE BLOOD COUNT 5.4 10*3/uL (4.8-10.8)
[2018-11-25 06:01] LABS: BUN 21 mg/dl (7-24); CHLORIDE 106 mmol/L (98-107); POTASSIUM 4.3 mmol/L (3.5-5.1); SODIUM 142 mmol/L (136-145)
[2018-11-25 08:00] VITALS: BP 160/74
--- NOTE | 2018-11-25 08:09 | NUR ---
Patient came in from [facility]. Faxed clinical updates for review. Patient will require precert to return. At this time, José Antonio HALL is also reviewing patient. will follow
--- NOTE | 2018-11-25 11:05 | NUR ---
MORALES REA [id number] Please refer to the physician's history and physical for past medical history, comorbid conditions, and allergies. Diagnosis: SACRAL WOUND SEPSIS Pedro Score: 11,HIGH RISK WOUND DESCRIPTIONS: WOUND NUMBER 5 RIGHT LOWER BACK. DRY FLAKY SKIN NOTED TO THIS AREA. NO OPEN WOUND NOTED. NO DRAINAGE NOTED. NO ERYTHEMA NOTED AT TIME OF ASSESSMENT TO THIS AREA. Surface the patient is resting on: Rental SKIN PREVENTION RECOMMENDATION: 1. Pressure redistribution support surface as appropriate 2. Elevate heels 3. Remove boots/TEDS every shift and reapply 4. Head of bed 30 degrees as tolerated 5. Assess nutrition and hydration 6. Manage moisture 7. Avoid the use of containment devices while in bed 8. Use absorptive products on surfaces limit layers of linens on bed 9. Turn and reposition every 1-2 hours in bed and every 1 hour in chair as tolerated 10. Weight shifts every 15 minutes while up in chair 11. Offloading with pillows or device to keep heels elevated off bed 12. Monitor skin at least every shift 13. Inspect under medical devices twice a day WOUND TREATMENT RECOMMENDATIONS: CLEANSE WITH SOAP AND WATER PAT DRY. APPLY SUREPREP ALLOW TO DRY LEAVE OPEN TO AIR. APPLY HYDRAGUARD TO SKIN SURROUNDING WOUND VAC DRESSING FOR PROTECTION.
[2018-11-25 12:00] VITALS: BP 135/66
--- NOTE | 2018-11-25 14:50 | NUR ---
PT HAD TOLD HE WANTED TO GO HOME INSTEAD OF GOING SOMEWHERE. WENT TO TALK TO PT AND HE SAYS HE REALIZES HE WILL NOT BE ABLE TO GO HOME. INFORMED HIM WE ARE STILL WORKING ON [facility], AND HIS SON HAS SAID [facility]. IF INSURANCE DENIES LTACH AGAIN. WILL CONTINUE TO FOLLOW.
[2018-11-25 16:00] VITALS: BP 128/61
--- NOTE | 2018-11-25 16:08 | NUR ---
DR. JOHNSON CALLED AND WANTED ANOTHER CULTURE FROM [facility] TO CORDINATE WITH DR BRANDON TOMORROW SINCE WOUND VAC JUST CHANGED TODAY.
[2018-11-25 20:00] VITALS: BP 133/40; BP 133/60
--- NOTE | 2018-11-25 22:15 | NUR ---
MEDICATED WITH NORCO PER PRN ORDER FOR C/O PAIN.
[2018-11-26] VITALS: BP 149/65
--- NOTE | 2018-11-26 05:20 | NUR ---
MEDICATED WITH NORCO PER PRN ORDER FOR C/O PAIN.
[2018-11-26 06:20] LABS: BASO # 0.1 10*3/uL (0.0-0.1); BASO % 0.8 % (0.0-1.0); EOS # 0.5 10*3/uL (0.0-0.4); EOS % 8.3 % (1.0-4.0); HEMATOCRIT 29.8 % (42.0-52.0); HEMOGLOBIN 9.5 g/dl (14.0-18.0); LYMPH # 1.3 10*3/uL (1.3-4.4); LYMPH % 21.3 % (27.0-41.0); MEAN CELL VOLUME 93.4 fl (80.0-94.0); MEAN CORPUSCULAR HGB 29.8 pg (27.0-31.0); MEAN CORPUSCULAR HGB CONC 31.9 g/dl (33.0-37.0); MEAN PLATELET VOLUME 8.8 fl (9.6-12.3); MONO # 0.6 10*3/uL (0.1-1.0); MONO % 10.4 % (3.0-9.0); NEUT # 3.6 10*3/uL (2.3-7.9); NEUT % 58.9 % (47.0-73.0); PLATELET COUNT AUTOMATED 211 10*3/uL (130-400); RED BLOOD COUNT 3.19 10*6/uL (4.50-5.90); RED CELL DISTRI WIDTH 24.2 % (0-14.5); WHITE BLOOD COUNT 6.1 10*3/uL (4.8-10.8)
[2018-11-26 06:45] LABS: BUN 23 mg/dl (7-24); CHLORIDE 104 mmol/L (98-107); CREATININE 1.06 mg/dL (0.70-1.30); POTASSIUM 4.4 mmol/L (3.5-5.1); SODIUM 141 mmol/L (136-145)
[2018-11-26 08:00] VITALS: BP 153/75
--- NOTE | 2018-11-26 08:09 | NUR ---
patient referral faxed to [facility] per patient request. Waiting on review/acceptance.
--- NOTE | 2018-11-26 10:02 | NUR ---
Dr. John notified of wound care recommendations.
[2018-11-26 12:00] VITALS: BP 124/67
--- NOTE | 2018-11-26 12:20 | NUR ---
PT STATED HE DID NOT WANT TO GO TO [facility], IT IS TOO FAR AWAY. ETHANOL OPERATOR SENT REFERRAL TO [facility].
--- NOTE | 2018-11-26 15:18 | NUR ---
PER ID CONTINUE WITH DC PLANNING -
[2018-11-26 16:00] VITALS: BP 111/48
--- NOTE | 2018-11-26 19:50 | NUR ---
MEDICATED WITH NORCO PER PRN ORDER FOR C/O PAIN.
[2018-11-26 20:00] VITALS: BP 127/54
[2018-11-27] VITALS: BP 124/54
--- NOTE | 2018-11-27 05:11 | NUR ---
MEDICATED WITH PRN NORCO FOR C/O PAIN. WILL MONITOR
[2018-11-27 05:49] LABS: BUN 26 mg/dl (7-24); CHLORIDE 105 mmol/L (98-107); CREATININE 1.24 mg/dL (0.70-1.30); POTASSIUM 4.5 mmol/L (3.5-5.1); SODIUM 141 mmol/L (136-145)
[2018-11-27 06:14] LABS: BASO % 0.6 % (0.0-1.0); EOS # 0.5 10*3/uL (0.0-0.4); EOS % 6.8 % (1.0-4.0); HEMATOCRIT 29.9 % (42.0-52.0); HEMOGLOBIN 9.3 g/dl (14.0-18.0); LYMPH # 1.1 10*3/uL (1.3-4.4); LYMPH % 16.2 % (27.0-41.0); MEAN CELL VOLUME 94.3 fl (80.0-94.0); MEAN CORPUSCULAR HGB 29.3 pg (27.0-31.0); MEAN CORPUSCULAR HGB CONC 31.1 g/dl (33.0-37.0); MONO # 0.7 10*3/uL (0.1-1.0); MONO % 9.6 % (3.0-9.0); NEUT # 4.6 10*3/uL (2.3-7.9); NEUT % 66.5 % (47.0-73.0); PLATELET COUNT AUTOMATED 217 10*3/uL (130-400); RED BLOOD COUNT 3.17 10*6/uL (4.50-5.90); WHITE BLOOD COUNT 6.9 10*3/uL (4.8-10.8)
[2018-11-27 08:00] VITALS: BP 138/68
--- NOTE | 2018-11-27 08:42 | NUR ---
Dr. John notified of wound care recommendations.
--- NOTE | 2018-11-27 10:48 | NUR ---
Was able to speak with a sales and marketing representative at [facility]; They currently do not have any beds available. Will follow.
--- NOTE | 2018-11-27 11:09 | NUR ---
Unable to find another facility to accept patient other than [facility]. Faxed clinical updates to Arleen, asked her to start percert. Waiting for auth
--- NOTE | 2018-11-27 11:22 | NUR ---
ZOFRAN GIVEN FOR C/O NAUSEA. WILL MONITOR.
[2018-11-27 12:00] VITALS: BP 116/56
--- NOTE | 2018-11-27 12:14 | NUR ---
Provided [facility] with referral, they are unable to accept at [facility]ACH because the patient has not had a minimum of a 3 night stay as a telemetry or ICCU patient.
--- NOTE | 2018-11-27 12:30 | NUR ---
ZOFRAN EFFECTIVE PER PT.
--- NOTE | 2018-11-27 13:18 | NUR ---
Faxed referral to the [facility], they are concerned about this patient because he is a [place] resident and does not have a 2nd insurance. He is into his copay days and does not have a clear discharge plan for after snf placement at this time. Contacted [facility] and asked how the family has been paying the copay days, Arleen stated the family needs to apply for medicaid but they have not applied yet so they are just "not paying" the copay amount at this time.
--- NOTE | 2018-11-27 13:50 | NUR ---
In to see patient, at bedside. Attempted to discuss with patient the issues we are having trying to refer him to other facilities. He adamately refuses to return to [facility]. I explained I tried [facility] in [place] (no [place] facility will allow this patient to return due to issues with family). [facility] in [facility] has no bed availability, [facility] and [facility] are both full. Faxed referral to [facility] in [place], they cannot accept because the IV antibiotic is every 8 hours, they can only accept 12 hour doses. Faxed referral to [facility] who stated they've received this referral in the past and the family has been unwilling to work with them regarding medicaid and payment. Faxed referral to all three [facility]. Waiting for review. Patient being very defiant stating if the doctors try to discharge him now he will appeal it through the Medicare rights.
[2018-11-27 16:00] VITALS: BP 114/54
--- NOTE | 2018-11-27 17:45 | NUR ---
NORCO GIVEN AT THIS TIME PER PRN ORDER FOR C/O PAIN. WILL MONITOR EFFECTIVENESS.
--- NOTE | 2018-11-27 19:15 | NUR ---
REPORT OBTAINED FROM DAVID. PATIENT IS AWAKE AND ALERT. VOICED NO COMPLAINTS AT THIS TIME. NO DISTRESS NOTED, RESP ARE ERND ON ROOM AIR. IV ATB THERAPY FLOWING TO [facility] PICC, SITE ASYMPTOMATIC. WOUND VAC CONNECTED AND PROPER SUCTION APPLIED, CONTINUOUS AT 125MMHG. SUPRA PUBIC CATH JERRY PATENT WITH STRA/CLEAR URINE. COLOSTOMY BAG INTACT, HARD STOOL NOTED. BED IS LOCKED IN LOWEST POSITION. CALL LIGHT WITHIN REACH.
[2018-11-27 20:00] VITALS: BP 131/54
--- NOTE | 2018-11-27 21:16 | NUR ---
PATIENT MEDICATED WITH COLACE D/T HARD STOOL INSIDE COLOSTOMY. WILL MONITOR
--- NOTE | 2018-11-27 23:49 | NUR ---
PATIENT MEDICATED WITH NORCO FOR C/O 02/05 NECK/BACK PAIN. WILL MONITOR
[2018-11-28] VITALS: BP 146/64
--- NOTE | 2018-11-28 01:00 | NUR ---
INFORMED THAT [facility] ORDER WAS D/C D/T EXTENDED STAY. STATED TO GO AHEAD AND RESTART ORDER
--- NOTE | 2018-11-28 01:50 | NUR ---
24 HR chart check completed.
--- NOTE | 2018-11-28 06:19 | NUR ---
PATIENT MEDICATED WITH NORCO FOR C/O 03/08 BACK/NECK PAIN. WILL MONITOR
[2018-11-28 07:17] LABS: BASO % 0.6 % (0.0-1.0); EOS # 0.4 10*3/uL (0.0-0.4); EOS % 8.3 % (1.0-4.0); HEMATOCRIT 28.8 % (42.0-52.0); HEMOGLOBIN 9.1 g/dl (14.0-18.0); LYMPH # 1.1 10*3/uL (1.3-4.4); LYMPH % 19.8 % (27.0-41.0); MEAN CORPUSCULAR HGB CONC 31.6 g/dl (33.0-37.0); MEAN PLATELET VOLUME 8.7 fl (9.6-12.3); MONO # 0.5 10*3/uL (0.1-1.0); MONO % 9.8 % (3.0-9.0); NEUT # 3.2 10*3/uL (2.3-7.9); NEUT % 61.3 % (47.0-73.0); PLATELET COUNT AUTOMATED 216 10*3/uL (130-400); RED BLOOD COUNT 3.03 10*6/uL (4.50-5.90); RED CELL DISTRI WIDTH 23.7 % (0-14.5); WHITE BLOOD COUNT 5.3 10*3/uL (4.8-10.8)
[2018-11-28 07:29] LABS: BUN 26 mg/dl (7-24); CHLORIDE 104 mmol/L (98-107); CREATININE 1.17 mg/dL (0.70-1.30); POTASSIUM 4.5 mmol/L (3.5-5.1); SODIUM 141 mmol/L (136-145)
[2018-11-28 08:00] VITALS: BP 142/73
--- NOTE | 2018-11-28 11:55 | NUR ---
The [facility] stating they will have to decline this patient at this time due to the high cost. Patient requires an extra length air bed for his wounds, a wound vac, a val lift, a private room for isolation needs, costly IV antibiotics and also has a lot of medical issues. Jose from the [facility] in [place] stated she may present to the hospital this afternoon to review patient and needs. Will follow.
[2018-11-28 12:00] VITALS: BP 136/64
[2018-11-28 16:00] VITALS: BP 132/59
--- NOTE | 2018-11-28 16:31 | NUR ---
ZOFRAN GIVEN FOR C/O NAUSEA. WILL MONITOR.
--- NOTE | 2018-11-28 16:38 | NUR ---
MORALES REA [id number] Please refer to the physician's history and physical for past medical history, comorbid conditions, and allergies. Diagnosis: SACRAL WOUND SEPSIS Pedro Score: 11,HIGH RISK WOUND DESCRIPTIONS: Wound Number: 1 Location of the wound: coccyx Type of wound: stage 4 Thickness: Full Size: 6.5cm x 5.5cm x 2.0cm Tunneling: none Underminin.5 from 10-4 o'clock Sinus Tract: none Presence of Exudate: Serosanguineous Amount: Moderate Color: Red Odor: None Periwound Skin Appearance: dry and flaky. Wound edges: approximated Pain (associated with wound): none at time of assessment Wound Number 2: Right buttocks intact at time of assessment. No open areas noted at this time. Wound Number: 3 Location of the wound: left top of foot Type of wound: DTI Size: 0.6cm x 0.3cm x <0.1cm Tunneling: none Undermining: none Sinus Tract: none Presence of Exudate: none Amount: None Color: Purple, dark red Odor: None Periwound Skin Appearance: Normal Wound edges: closed Pain (associated with wound): none at time of assessment Wound Number 4: Plantar aspect of base of right great toe skin is intact at time of assessment no drainage noted at this time. Surface the patient is resting on: Rental SKIN PREVENTION RECOMMENDATION: 1. Pressure redistribution support surface as appropriate 2. Elevate heels 3. Remove boots/TEDS every shift and reapply 4. Head of bed 30 degrees as tolerated 5. Assess nutrition and hydration 6. Manage moisture 7. Avoid the use of containment devices while in bed 8. Use absorptive products on surfaces limit layers of linens on bed 9. Turn and reposition every 1-2 hours in bed and every 1 hour in chair as tolerated 10. Weight shifts every 15 minutes while up in chair 11. Offloading with pillows or device to keep heels elevated off bed 12. Monitor skin at least every shift 13. Inspect under medical devices twice a day WOUND TREATMENT RECOMMENDATIONS: See new v.a.c veraflo orders per Dr. Schumacher.
--- NOTE | 2018-11-28 16:43 | NUR ---
Wound vac dressing changed per physician order. 2 piece of foam in wound bed. Next change is sunday12/02/18. Wound Number: 1 Location of the wound: coccyx Type of wound: stage 4 Thickness: Full Size: 6.5cm x 5.5cm x 2.0cm Tunneling: none Underminin.5 from 10-4 o'clock Sinus Tract: none Presence of Exudate: Serosanguineous Amount: Moderate Color: Red Odor: None Periwound Skin Appearance: dry and flaky. Wound edges: approximated Pain (associated with wound): none at time of assessment
--- NOTE | 2018-11-28 17:40 | NUR ---
ZOFRAN EFFECTIVE PER PT.
[2018-11-28 20:00] VITALS: BP 126/59
--- NOTE | 2018-11-28 21:20 | NUR ---
FLAVOR TANK TENDER CALLED TO INFORM WOUND VAC SUPPLIES NEEDED TO REINFORCE LEAK.
--- NOTE | 2018-11-28 21:30 | NUR ---
COLOSTOMY BAG EXPLODED AT [facility] D/T PRESSURE FROM LARGE SEMI-SOFT BM. AREA CLEAN PER POLICES AND PROCEDURE, PREPPED AND NEW WAFFER/BAG PLACED. PATIENT TOLERATED WELL.
--- NOTE | 2018-11-28 22:15 | NUR ---
WOUND VAC LEAK REINFORCED WITH MULTIPLE TEGADERM STRIPS. AREA SUCTIONING APPROPIATLY AT THIS TIME. PATIENT TOLERATED WELL.
--- NOTE | 2018-11-28 23:07 | NUR ---
PATIENT MEDICATED WITH NORCO FOR C/O 03/08 PAIN BACK/NECK. WILL MONITOR
[2018-11-29] VITALS: BP 132/67
--- NOTE | 2018-11-29 00:07 | NUR ---
NORCO APPEARS TO BE EFFECTIVE PATIENT RESTING IN BED EYES CLOSED. NO DISTRESS NOTED, RESP ARE ERDN ON ROOM AIR. CALL LIGHT LEFT WITHIN REACH.
--- NOTE | 2018-11-29 00:33 | NUR ---
24 HR chart check completed.
--- NOTE | 2018-11-29 05:37 | NUR ---
PATIENT MEDICATED WITH NORCO FOR C/O BACK/NECK PAIN 03/08. WILL MONITOR
[2018-11-29 06:49] LABS: BUN 27 mg/dl (7-24); CHLORIDE 104 mmol/L (98-107); CREATININE 1.25 mg/dL (0.70-1.30); POTASSIUM 4.5 mmol/L (3.5-5.1); SODIUM 140 mmol/L (136-145)
--- NOTE | 2018-11-29 07:27 | NUR ---
[facility] considering this patient, however they are unable to take IV ATB that is more frequent than Q24 hours. If ATB frequency can be changed, they can accept this patient. Will follow
[2018-11-29 08:00] VITALS: BP 135/65
[2018-11-29 10:30] VITALS: BP 110/50
--- NOTE | 2018-11-29 11:16 | NUR ---
[facility] stating they will now accept this patient without the IV antibiotic, faxed clinical updates, asked to start precert. Will have to wait for auth
--- NOTE | 2018-11-29 11:18 | NUR ---
NOTIFIED OF 110/50 BP. INSTRUCTED TO WAIT 2 HOURS AND RECHECK. HOLDING COREG UNTIL REPEAT BP IS RETRIEVED.
[2018-11-29 12:00] VITALS: BP 125/58
--- NOTE | 2018-11-29 13:58 | NUR ---
PT BLOOD PRESSURE IS 122/52. INSTRUCTED BY DR. GASTON TO GIVE TEN OCLOCK SCHEDULED COREG.
[2018-11-29 16:00] VITALS: BP 99/59
--- NOTE | 2018-11-29 18:17 | NUR ---
PT MEDICATED WITH NORCO PER ORDER FOR 7 OUT OF 10 PAIN. PT STATED THAT HE DOES NOT HAVE AN ALLERGY TO ACETAMINOPHEN.
--- NOTE | 2018-11-29 18:52 | NUR ---
PT WOUND VAC CANISTER IS FULL. CALLED PERSONAL CARE WORKER TO GET NEW CANISTER.
--- NOTE | 2018-11-29 19:00 | NUR ---
BEDSIDE REPORT OBTAINED FROM RIC-NATALIO. PATIENT IS AWAKE AND ALERT, VOICED NO COMPLAINT. NOTED THAT WOUND VAC IS ALARMING AT THIS TIME D/T FULL CANNISTER OF SEROSANGUINOUS FLUID 500CC, PHOTO PRODUCER CALLED TO OBTAIN NEW CANNISTER. NO DISTRESS NOTED, PATIENT RESP ARE ERND ON ROOM AIR. BED IS LOCKED IN LOWEST POSITION, CALL LIGHT LEFT WITHIN REACH.
--- NOTE | 2018-11-29 19:20 | NUR ---
WOUND VAC CONTAINER REPLACED WITH NEW CONTAINER. PATIENT VOICES NO CONCERNS AT THIS TIME.
[2018-11-29 20:00] VITALS: BP 124/49
[2018-11-30] VITALS: BP 111/48
--- NOTE | 2018-11-30 00:34 | NUR ---
ALARM FOR WOUND VAC SOUNDING. SUCTION RESET. PATIENT SHOWS NO SIGNS OR SYMPTOMS OF DISTRESS. RESPIRATIONS EASY NONLABORED ON ROOM AIR. VOICES NO CONCERNS AT THIS TIME.
--- NOTE | 2018-11-30 04:05 | NUR ---
LYING IN BED EYES CLOSED, NO SIGNS OR SYMPTOMS OF DISTRESS. RESPIRATIONS EASY NONLABORED ON ROOM AIR.
--- NOTE | 2018-11-30 04:14 | NUR ---
24Shift chart check completed.
[2018-11-30 06:36] LABS: BUN 25 mg/dl (7-24); CHLORIDE 105 mmol/L (98-107); CREATININE 1.18 mg/dL (0.70-1.30); POTASSIUM 4.6 mmol/L (3.5-5.1); SODIUM 141 mmol/L (136-145)
[2018-11-30 08:00] VITALS: BP 118/76
--- NOTE | 2018-11-30 08:13 | NUR ---
NORCO 10/325 GIVEN PER PATIENT REQUEST FOR NECK AND ARM PAIN.
[2018-11-30 12:00] VITALS: BP 111/82; BP 90/63
[2018-11-30 16:00] VITALS: BP 106/54
[2018-11-30 20:00] VITALS: BP 114/58
--- NOTE | 2018-11-30 22:10 | NUR ---
PRN NORCO GIVEN AT PATIENT'S REQUEST. PAIN RATED 6/10 GENERALIZED.
--- NOTE | 2018-11-30 23:00 | NUR ---
PRN PAIN MEDICATION EFFECTIVE. PATIENT SLEEPING.
[2018-12-01] VITALS: BP 122/58
--- NOTE | 2018-12-01 05:50 | NUR ---
PRN PAIN MEDICATION REQUESTED.
[2018-12-01 06:15] LABS: BASO # 0.1 10*3/uL (0.0-0.1); BASO % 0.7 % (0.0-1.0); EOS # 0.5 10*3/uL (0.0-0.4); HEMATOCRIT 28.5 % (42.0-52.0); HEMOGLOBIN 8.8 g/dl (14.0-18.0); LYMPH # 1.3 10*3/uL (1.3-4.4); LYMPH % 17.9 % (27.0-41.0); MEAN CELL VOLUME 96.3 fl (80.0-94.0); MEAN CORPUSCULAR HGB 29.7 pg (27.0-31.0); MEAN CORPUSCULAR HGB CONC 30.9 g/dl (33.0-37.0); MEAN PLATELET VOLUME 8.9 fl (9.6-12.3); MONO # 0.8 10*3/uL (0.1-1.0); MONO % 11.5 % (3.0-9.0); NEUT # 4.4 10*3/uL (2.3-7.9); NEUT % 62.8 % (47.0-73.0); PLATELET COUNT AUTOMATED 190 10*3/uL (130-400); RED BLOOD COUNT 2.96 10*6/uL (4.50-5.90); RED CELL DISTRI WIDTH 23.1 % (0-14.5)
[2018-12-01 06:24] LABS: BUN 26 mg/dl (7-24); CHLORIDE 106 mmol/L (98-107); CREATININE 1.16 mg/dL (0.70-1.30); POTASSIUM 4.6 mmol/L (3.5-5.1); SODIUM 141 mmol/L (136-145)
--- NOTE | 2018-12-01 06:25 | NUR ---
CHART CHECK COMPLETED
[2018-12-01 10:00] VITALS: BP 135/87
[2018-12-01 14:00] VITALS: BP 129/53
--- NOTE | 2018-12-01 16:37 | NUR ---
PT GIVEN PO NORCO PER PRN ORDER FOR C/O SACRAL PAIN. CHRONIC PAIN PER PT. WILL MONITOR EFFECTIVENESS.
--- NOTE | 2018-12-01 17:49 | NUR ---
IMPRESS ASSOCIATE SPOKE WITH GAVIOTA REGARDING CHANGING THE DAKINS SOLUTION AT THIS TIME. NO NEED TO CHANGE AT THIS TIME. ESTIMATED 700 CC LEFT IN BOTTLE. WILL CONTINUE TO MONITOR.
[2018-12-01 18:00] VITALS: BP 135/67
--- NOTE | 2018-12-01 18:02 | NUR ---
NORCO RELIEVING PAIN PER PT. WILL CONTINUE TO MONITOR.
[2018-12-01 20:00] VITALS: BP 118/56
[2018-12-01 21:10] VITALS: BP 120/58
--- NOTE | 2018-12-01 21:17 | NUR ---
ZOFRAN GIVEN PER ORDER FOR COMPLAINTS OF NAUSEA. WILL CONTINUE TO MONITOR.
--- NOTE | 2018-12-01 22:30 | NUR ---
ZOFRAN EFFECTIVE FOR NAUSEA. PT RESTING COMFORTABLY.
--- NOTE | 2018-12-01 23:15 | NUR ---
NORCO GIVEN PER ORDER FOR COMPLAINTS OF NECK AND ARM PAIN. WILL REASSESS.
--- NOTE | 2018-12-01 23:41 | NUR ---
24 HR chart check completed.
[2018-12-02] VITALS: BP 139/65
--- NOTE | 2018-12-02 01:00 | NUR ---
NORCO EFFECTIVE FOR PAIN. PT SLEEPING COMFORTABLY.
[2018-12-02 07:09] LABS: BASO % 0.6 % (0.0-1.0); EOS # 0.5 10*3/uL (0.0-0.4); EOS % 7.7 % (1.0-4.0); HEMATOCRIT 27.4 % (42.0-52.0); HEMOGLOBIN 8.5 g/dl (14.0-18.0); LYMPH # 1.3 10*3/uL (1.3-4.4); LYMPH % 18.8 % (27.0-41.0); MEAN CELL VOLUME 95.5 fl (80.0-94.0); MEAN CORPUSCULAR HGB 29.6 pg (27.0-31.0); MEAN PLATELET VOLUME 8.8 fl (9.6-12.3); MONO # 0.8 10*3/uL (0.1-1.0); MONO % 12.1 % (3.0-9.0); NEUT # 4.1 10*3/uL (2.3-7.9); NEUT % 60.4 % (47.0-73.0); PLATELET COUNT AUTOMATED 193 10*3/uL (130-400); RED BLOOD COUNT 2.87 10*6/uL (4.50-5.90); RED CELL DISTRI WIDTH 22.9 % (0-14.5); WHITE BLOOD COUNT 6.7 10*3/uL (4.8-10.8)
[2018-12-02 07:34] LABS: BUN 23 mg/dl (7-24); CHLORIDE 105 mmol/L (98-107); CREATININE 1.09 mg/dL (0.70-1.30); POTASSIUM 4.4 mmol/L (3.5-5.1); SODIUM 141 mmol/L (136-145)
[2018-12-02 08:00] VITALS: BP 144/63
--- NOTE | 2018-12-02 08:35 | NUR ---
WOUND VAC CHANGE COMPLETED PER WOUNDGAVIOTA ARMIOJ. REP AT BEDSIDE FOR INSERVICE. PT TOLERATED WELL. WOUND BED PINK WITH GRANUALATION. WOUND VAC @ 125 MMHG CONTINUOUS SUCTION,SEROUS DRAINAGE NOTED TO VAC.
--- NOTE | 2018-12-02 09:42 | NUR ---
Patient has received auth for [facility]. Can go if medically stable for discharge, checking on type of wound vac patient needs so fpc can order.
--- NOTE | 2018-12-02 10:38 | NUR ---
Wound vac dressing changed per physician order. 2 piece of foam in wound bed. Next change is sunday12/04/18. Wound Number: 1 Location of the wound: coccyx Type of wound: stage 4 Thickness: Full Size: 6.4cm x 4.3cm x 2.8cm Tunneling: none Underminin.5 from 9-3 o'clock Sinus Tract: none Presence of Exudate: Serous Amount: Moderate Color: Red Odor: None Periwound Skin Appearance: dry and flaky. Wound edges: approximated Pain (associated with wound): none at time of assessment
--- NOTE | 2018-12-02 10:56 | NUR ---
NORCO 10/325 MG NORCO AND ZOFRAN 8 MG GIVEN FOR C/O GENERALIZED PAIN TO RIGHT SHOULDER AND NAUSEA.
--- NOTE | 2018-12-02 13:23 | NUR ---
Patient has received auth for [facility] and they have received the veriflow wound vac. Patient is ok to go if medically stable for discharge.
[2018-12-02] MEDS ORDERED: HYDROCODONE-AC1 EACH PO (13:44)
[2018-12-02] MEDS ORDERED: LEVAQUIN750 M1 PO (13:47)
--- NOTE | 2018-12-02 13:53 | NUR ---
In to see patient with Yadira Garces CM. Notified patient his insurance has authorized him to go to snf at [facility] in [place] and Dr. Green has confirmed you will be discharged to there this afternoon. He said he will appeal his discharge through Medicare Rights. He said he looked at [facility] online and it only has a 2 star rating, where [facility] has 3 1/2 "and they were a dump" "I don't know if I want to go to this [facility]". He also stated he feels he should stay here because the "air bed" and the wound vac has made a tremendous difference in his wounds. I told him that [facility] has ordered and received the same wound vac as the one here. he said "They probably don't know how to use it!". "They won't get me the same bed". I instructed him if he wanted to appeal the discharge he will need to initiate the call on the back of the paper he signed and if he is found ready for discharge, he will be responsible for the hospital bill after 12:00 noon tomorrow 12/03/18. Notified Dr. Green of patients intensions.
--- NOTE | 2018-12-02 14:02 | NUR ---
PT APPEALED D/C FOR TODAY NOTIFIED DR GASTON. DR GASTON AWARE.
--- NOTE | 2018-12-02 15:10 | NUR ---
Received fax from [facility] requesting documents to be faxed for review. Printed and faxed all required documents to the [facility] number provided. Will have to wait for determination prior to discharging patient.
[2018-12-02 16:00] VITALS: BP 113/60
--- NOTE | 2018-12-02 16:55 | NUR ---
REINFORCED WOUND VAC IT WAS LEAKING D/T PT TEARING OPEN BARRIER WHILE MOVING HIMSELFUP IN BED.WOUND VAC @ 125 MMHG AND SEALED CURRENTLY. PT VOICES NO OTHER NEEDS.EMPTIED PT JERRY.VOIDED 1000 CC OF CATE /YELLOW CLEAR URINE. BED IN LOW POSITION. CALL LIGHT IN REACH.
[2018-12-02 20:00] VITALS: BP 108/52
--- NOTE | 2018-12-02 21:53 | NUR ---
MEDICATED WITH NORCO FOR C/O NECK & LEFT SHOULDER PAIN.
[2018-12-03] VITALS: BP 128/70
--- NOTE | 2018-12-03 01:00 | NUR ---
RESTING IN BED WITH EYES CLOSED; PAIN MEDICATION APPARENTLY EFFECTIVE. CALL LIGHT WITHIN REACH.
--- NOTE | 2018-12-03 06:45 | NUR ---
PT'S SON HEATHER REA CALLED & SPOKE TO THIS RN PERTAINING TO PT'S CARE. SON EXPRESSING CONCERN ABOUT HIS FATHER'S CARE & STATED THAT HIS FATHER WAS GOING TO BE PUT ON PO ANTIBIOTICS. EXPLAINED TO SON THAT HIS FATHER IS ON IV ANTIBIOTICS AT THIS TIME TO TREAT THE INFECTION. SON LEFT PHONE NUMBER FOR M.D. TO CALL BACK TO TALK TO HIM. PHONE # .
[2018-12-03 08:00] VITALS: BP 146/61
--- NOTE | 2018-12-03 08:04 | NUR ---
DETAILED NOTICE OF DISCHARGE GIVEN TO PT AND FAXED BACK TO [employer].
--- NOTE | 2018-12-03 09:00 | NUR ---
RECIEVED A CALL FROM PARISH FROM [employer], WANTS TO MAKE SURE WOUND VAC WILL BE AT THE FACILITY WHEN PT IS DISCHARGED. SPOKE WITH VICKEY FROM [facility] AND SHE STATES THAT IT HAS BEEN ORDERED.
--- NOTE | 2018-12-03 11:00 | NUR ---
CALLED VICKEY FROM [facility] TO INQUIRE IF SHE HAD HEARD ANYTHING ABOUT WOUND VAC. STATES SHE WILL CALL ME BACK AFTER SHE CHECKS WITH STAFF TO SEE IF IT HAS ARRIVED. CALLED PARISH BACK FROM [employer]. SHE STATES SHE WILL HAVE TO MAKE A DETERMINATION BY 1:30-2PM. WILL CONTINUE TO FOLLOW.
--- NOTE | 2018-12-03 11:04 | NUR ---
SPOKE WITH SHIFT SUPERVISOR MELTING,ANAND, R/T PT'S DISCHARGE. SHE STATED HE HAS UNTIL NOON TOMORROW UNTIL HE HAS TO BE DISCHARGED. PT UPDATED.
[2018-12-03 12:00] VITALS: BP 136/66
--- NOTE | 2018-12-03 12:59 | NUR ---
CALLED VICKEY AGAIN ABOUT WOUND VAC. SHE STATES SHE HAS NOT HEARD BACK FROM HER ADMISTRATOR YET AND WILL CALL HER AGAIN NOW. INFORMED HER THAT MEDICARE NEEDED INFOMATION BY 1:30 OR 2PM TO MAKE DETERMINATION.
--- NOTE | 2018-12-03 13:12 | NUR ---
RECIEVED A CALL BACK FROM VICKEY FROM [facility], SHE STATES THEY WILL NOT ORDER WOUND VAC UNTIL THEY ARE 100% SURE PT IS COMING TO THEIR FACILITY DUE TO COST OF IT. PARISH FROM [employer] INFOMED AND WILL CALL ME BACK WHEN SHE HAS FINAL DETERMINATION.
--- NOTE | 2018-12-03 13:25 | NUR ---
RECIEVED A RETURN CALL FROM PARISH FROM [employer], THEY ARE SUBMITTING THE DENIAL AND WILL HAVE A FINAL DETERMINATION IN A FEW HOURS. SHE WILL CALL ME BACK.
--- NOTE | 2018-12-03 14:03 | NUR ---
PER PHONE CALL FROM [facility] PATIENT APPEAL HAS BEEN DENIED. SHE STATES SHE WILL CALL PT AND FAMILY AND INFOM THEM. PT HAS TO BE DISCHARGED BY 12 NOON ON sunNovember.
--- NOTE | 2018-12-03 15:07 | NUR ---
SPOKE WITH ANAND ORNELAS, MANAGER BRANCH, R/T DISCHARGE ORDER FOR TODAY. ANAND CALLED [facility] AND THEY STATED THEY WULD NOT BE ABLE TO TAKE PT UNTIL TOMORROW. I UPDATED DR GASTON THAT PT IS UNABLE TO LEAVE UNTIL TOMORROW BUT NEEDS TO BE DISCHARGED BY NOON TOMORROW OR PT HAS TO PAY HIS EXPENSES AFTER NOON TOMORROW.
--- NOTE | 2018-12-03 15:07 | NUR ---
PER VICKEY AT [facility] THEY CAN NOT TAKE PT UNTIL TOMORROW. PT RN ROSA NOTIFIED. SHE STATES SHE WILL CALL DR JUNG. WILL CONTINUE TO FOLLOW.
--- NOTE | 2018-12-03 16:00 | NUR ---
MEDICATED WITH PRN PO NORCO FOR LEFT NECK/SHOULDER PAIN.
--- NOTE | 2018-12-03 17:00 | NUR ---
PRN PO NORCO EFFECTIVE, PER PATIENT.
[2018-12-03 20:00] VITALS: BP 135/60
--- NOTE | 2018-12-03 20:07 | NUR ---
PATIENT RESTING IN BED TALKING ON PHONE. NO NEEDS MADE AT THIS TIME. INQUIRING ABOUT WHEN PAIN MEDICATION IS DUE NEXT. BED IN LOWEST POSITION, CALL LIGHT IN REACH
--- NOTE | 2018-12-03 22:26 | NUR ---
MEDICATED WITH NORCO PRN FOR C/O PAIN IN LEFT ARM. WILL MONITOR
[2018-12-04] VITALS: BP 137/64
--- NOTE | 2018-12-04 01:32 | NUR ---
24 HR chart check completed.
--- NOTE | 2018-12-04 02:54 | NUR ---
PATIENT RESTING IN BED WITH EYES CLOSED. RESPS EASY AND REGULAR. BED IN LOWEST POSITION, CALL LIGHT IN REACH
--- NOTE | 2018-12-04 05:40 | NUR ---
MEDICATED WITH PRN NORCO FOR C/O BACK PAIN. WILL MONITOR
[2018-12-04 08:00] VITALS: BP 142/66
--- NOTE | 2018-12-04 08:36 | NUR ---
[facility] WILL PICK PT UP AT 11 AM TO TAKE HIM TO [place]. DISCHARGE SUMMARY AND INFOMATION FAXED TO [facility]. VICKEY FROM [facility]. 4E CHAIN MAKER MACHINE AWARE.
--- NOTE | 2018-12-04 08:48 | NUR ---
CALLED LEFT MESSAGE ON PHONE THAT PT IS BEING DISCHARGED TO [facility] AT 11AM TODAY.
--- NOTE | 2018-12-04 09:35 | NUR ---
NURSE TO NURSE REPORT GIVEN NATALIO WARNER AT [facility]. HOSPITAL NUMBER PROVIDED FOR FURTHER QUESTIONS.
--- NOTE | 2018-12-04 09:41 | NUR ---
PER THE PICC LINE IS TO BE REMOVED FOR DISCHARGE. PER THE PICC LINE TIP DOES NOT NEED TO BE CULTURED.
--- NOTE | 2018-12-04 10:50 | NUR ---
PATIENT WAS GETTING DRESSING CHANGES AND REPORTED NAUSEA. PRN ZOFRAN GIVEN TO FACILITATE COMFORT.
--- NOTE | 2018-12-04 11:25 | NUR ---
Discharge instructions reviewed with patient/family. Patient receptive and verbalizes understanding. Follow-up care arranged. Written instructions given to patient/family. NONI JARAMILLO
== END 2018-12-04 11:47 | disposition other institution (70) | DRG 871 ==
LOC: ED 19:09 → 4E 21:55 → EDHOLD 21:55 → 4E 21:55
PROVIDERS: Family Medicine; Internal Medicine; Physician Assistant; Student in an Organized Health Care Education/Training Program; ADMIT Internal Medicine
DX: A41.9 Sepsis, unspecified organism (principal); L89.154 Pressure ulcer of sacral region, stage 4; N18.6 End stage renal disease; E44.0 Moderate protein-calorie malnutrition; N39.0 Urinary tract infection, site not specified; G93.40 Encephalopathy, unspecified; M46.28 Osteomyelitis of vertebra, sacral and sacrococcygeal region; G82.20 Paraplegia, unspecified; E11.69 Type 2 diabetes mellitus with other specified complication; L89.222 Pressure ulcer of left hip, stage 2; L89.322 Pressure ulcer of left buttock, stage 2; G89.29 Other chronic pain; D50.8 Other iron deficiency anemias; Z16.19 Resistance to other specified beta lactam antibiotics; L89.310 Pressure ulcer of right buttock, unstageable; J44.9 Chronic obstructive pulmonary disease, unspecified; B96.5 Pseudomonas (aeruginosa) (mallei) (pseudomallei) as the cause of diseases classified elsewhere; K21.9 Gastro-esophageal reflux disease without esophagitis; E11.22 Type 2 diabetes mellitus with diabetic chronic kidney disease; L89.212 Pressure ulcer of right hip, stage 2; L89.132 Pressure ulcer of right lower back, stage 2; Z95.810 Presence of automatic (implantable) cardiac defibrillator; Z79.4 Long term (current) use of insulin; Z88.6 Allergy status to analgesic agent; Z87.891 Personal history of nicotine dependence; Z83.3 Family history of diabetes mellitus; Z84.1 Family history of disorders of kidney and ureter; Z82.49 Family history of ischemic heart disease and other diseases of the circulatory system; Z80.8 Family history of malignant neoplasm of other organs or systems; Z79.899 Other long term (current) drug therapy; Z79.82 Long term (current) use of aspirin; Z93.3 Colostomy status; Z90.49 Acquired absence of other specified parts of digestive tract; Z68.30 Body mass index [BMI] 30.0-30.9, adult

== ENCOUNTER 2019-02-20 18:01 | Inpatient (IN) | payer MEDICARE ==
[2019-02-20] VITALS (7 sets, daily range): BP systolic 60–121; BP diastolic 40–72
[~2019-02-20] VITALS: Ht 188 cm; Wt 123.9 kg
--- NOTE | ~2019-02-20 | EKG ---
[place], [place] ELECTROCARDIOGRAM REPORT NAME: MORALES REA UNIT #: [id number] ROOM: [facility] DOCTOR: CINTHIA DRAFT REPORT BIRTHDATE: [birth year] [facility] Test Date: 2019-02-20 Test Time: 19:00:14 Pat Name: MORALES REA Department: Room: [facility] Gender: M Transcription Manager: : 1950 Requested By: SIM BUSH DNP Order Number: [id number] Reading MD: Kalina Stokes Measurements Intervals [place] Rate: 92 P: -55 GA: 265 QRS: -80 QRSD: 151 T: 61 QT: 394 QTc: 488 Interpretive Statements A fib IVCD vs Ventricular-paced complexes Probable left atrial enlargement Baseline wander in lead(s) II,aVF Compared to ECG 11/20/2018 20:06:21 Sinus rhythm no longer present Electronically Signed On 02-21-2019 12:47:51 PDT by Kalina Stokes CM:EKGRPT:ELECTROCARDIOGRAM REPORT [id number] SIM VICENTE DRAFT REPORT SIM BUSH DNP
[~2019-02-20 18:01] MED LIST changes: +ASPIRIN81 M1 PO; +B-121000 MCG PO; +COREG6.25 MG PO; +DULCOLAX10 M1 R; +LANTUS SOL100 UNIT/1 SQ; +LEVAQUIN750 M1 PO; +MILK OF MA400 MG/5 M PO; +THERAGRAN-M PR1 EACH PO; +VITAMIN C500 M4 PO; +ZINC-220220 MG PO; +ZOFRAN4 MG PO; +ZYVOX600 MG PO
[2019-02-20 18:46] LABS: BASO % 0.2 % (0.0-1.0); EOS # 0.1 10*3/uL (0.0-0.4); EOS % 0.5 % (1.0-4.0); HEMATOCRIT 28.3 % (42.0-52.0); HEMOGLOBIN 8.6 g/dl (14.0-18.0); LYMPH # 0.7 10*3/uL (1.3-4.4); MEAN CELL VOLUME 92.2 fl (80.0-94.0); MEAN CORPUSCULAR HGB CONC 30.4 g/dl (33.0-37.0); MEAN PLATELET VOLUME 9.5 fl (9.6-12.3); MONO # 0.7 10*3/uL (0.1-1.0); NEUT # 15.2 10*3/uL (2.3-7.9); NEUT % 89.8 % (47.0-73.0); PLATELET COUNT AUTOMATED 263 10*3/uL (130-400); RED BLOOD COUNT 3.07 10*6/uL (4.50-5.90); RED CELL DISTRI WIDTH 16.4 % (0-14.5); WHITE BLOOD COUNT 16.9 10*3/uL (4.8-10.8)
[2019-02-20 18:58] LABS: ACT PARTIAL THROMBO TIME 32.5 SECONDS (20.0-32.1); INTERNATIONAL NORM RATIO 1.1 (2.0-3.5)
[2019-02-20 19:14] LABS: BILIRUBIN NEGATIVE (NEGATIVE); BLOOD 3+ (NEGATIVE); CLARITY SL CLOUDY (CLEAR); COLOR YELLOW (YELLOW); GLUCOSE NEGATIVE (NEGATIVE); KETONE NEGATIVE (NEGATIVE); LEUKO ESTERASE 2+ (NEGATIVE); NITRITE POSITIVE (NEGATIVE); SPECIFIC GRAVITY 1.025 (1.005-1.030)
[2019-02-20 19:19] LABS: ALBUMIN 2.5 gm/dl (3.1-4.5); ALKALINE PHOSPHATASE 75 U/L (45-117); BUN 15 mg/dl (7-24); CHLORIDE 103 mmol/L (98-107); CREATININE 1.23 mg/dL (0.70-1.30); LIPASE 57 U/L (73-393); SGOT/AST 10 IU/L (3-35); SGPT/ALT 12 U/L (12-78); SODIUM 136 mmol/L (136-145); TOTAL PROTEIN 7.3 gm/dL (6.4-8.2)
[2019-02-20 19:21] LABS: BACTERIA 4+; MUCOUS TRACE; RBC TNTC rbc/hpf (0-2); WBC TNTC wbc/hpf (0-5)
[2019-02-20 19:29] LABS: TROPONIN I < 0.015 ng/ml (<0.045)
--- NOTE | 2019-02-20 20:40 | NUR ---
A 68 YEAR OLD MALE admitted to , under the services of [facility] DO with a diagnosis of SEPSIS. Chief complaint is N/V. Patient arrived via stretcher from ER. Monitor applied. Initial assessment completed. Vital signs taken and recorded. [facility] DO notified of admission to the unit. Orders received. See assessment for past medical history, medications and allergies. Patient and/or family oriented to unit. [facility] visitation policy reviewed. Clothing/patient valuable form completed. EDELMIRA PEREZ
--- NOTE | 2019-02-20 22:05 | NUR ---
FOUR FAILED ATTEMPTS TO GET SECOND IV WAS ATTEMPTED BY TWO DIFFERENT RN'S.
[2019-02-20] MEDS ORDERED: NORCO 10-325 T1 EACH PO (22:13)
[2019-02-20] MEDS ORDERED: LEVEMIR100 UNIT/1 SC (22:14)
[2019-02-20] MEDS ORDERED: Ventolin 02.5 MG/3 M INH (22:17)
[2019-02-20] MEDS ORDERED: NOVOLOG10 ML SC (22:20)
[2019-02-21] VITALS (8 sets, daily range): BP systolic 100–128; BP diastolic 46–75
--- NOTE | 2019-02-21 00:05 | NUR ---
NOTIFIED DR. GARCES ANSWERING SERVICE OF NEW CONSULT.
--- NOTE | 2019-02-21 00:18 | NUR ---
LEVAQUIN STOPPED AT THIS TIME. PATIENT DEVELOPING HIVES AND IS VERY ITCHY. PATIENT ALSO C/O NECK PAIN. RATES 03/[address] MALLORY.
--- NOTE | 2019-02-21 01:20 | NUR ---
PATIENT MANUAL BLOOD PRESSURE 130/28. CHECKED BY 2 RNS. PATIENT VERY DROWSY AT THIS TIME. PATIENT SHAKING. TYMPANIC TEMP 100.[address] MALLORY ON FLOOR. PATIENT TO BE TRANSFERED TO ICU
--- NOTE | 2019-02-21 01:36 | NUR ---
RECEIVED PATIENT FROM . TEMP 100.4 TYMPANIC, HR 82, RESP. 18, MANUAL B/P BY DR. MALLORY 100/50. LUNGS CLEAR BILAT, COLOSTOMY AND SUPRAPUBIC JERRY INTACT. WOUND VAC TO COCCYX ALSO INTACT. PT. ALERT AND ORIENTED x3. FRANK MUNROE RN
[2019-02-21 05:12] LABS: BUN 13 mg/dl (7-24); CHLORIDE 108 mmol/L (98-107); CHOLESTEROL 75 mg/dL (<200); CREATININE 1.03 mg/dL (0.70-1.30); FREE T4 1.41 ng/dl (0.76-1.46); HDL CHOLESTEROL 22 mg/dl (40-60); LDL CHOLESTEROL 37 mg/dL (9-159); PHOSPHOROUS 3.1 mg/dL (2.5-4.9); POTASSIUM 3.3 mmol/L (3.5-5.1); SODIUM 139 mmol/L (136-145); TRIGLYCERIDES 79 mg/dl (<150); VLDL CHOLESTEROL 16 mg/dL (6-40)
[2019-02-21 05:49] LABS: BASO # 0.1 10*3/uL (0.0-0.1); BASO % 0.3 % (0.0-1.0); EOS # 0.2 10*3/uL (0.0-0.4); HEMATOCRIT 25.8 % (42.0-52.0); HEMOGLOBIN 7.7 g/dl (14.0-18.0); LYMPH # 0.7 10*3/uL (1.3-4.4); MEAN CELL VOLUME 93.5 fl (80.0-94.0); MEAN CORPUSCULAR HGB 27.9 pg (27.0-31.0); MEAN CORPUSCULAR HGB CONC 29.8 g/dl (33.0-37.0); MEAN PLATELET VOLUME 9.8 fl (9.6-12.3); MONO # 0.7 10*3/uL (0.1-1.0); MONO % 4.8 % (3.0-9.0); NEUT # 12.9 10*3/uL (2.3-7.9); NEUT % 87.6 % (47.0-73.0); PLATELET COUNT AUTOMATED 268 10*3/uL (130-400); RED BLOOD COUNT 2.76 10*6/uL (4.50-5.90); RED CELL DISTRI WIDTH 16.7 % (0-14.5); WHITE BLOOD COUNT 14.7 10*3/uL (4.8-10.8)
--- NOTE | 2019-02-21 07:27 | NUR ---
Shift chart check completed.24 HR chart check completed.
--- NOTE | 2019-02-21 08:03 | NUR ---
Occupational Therapy referral received when patient admitted to [facility]. Patient then transferred to [facility] 02/21/19. Will need new OT referral when patient is medically appropriate and able to participate in therapy. Thank you. Leana La OTR/suleman
--- NOTE | 2019-02-21 08:04 | NUR ---
Orders received for PT evaluation on 02/20/19 he was then transferred to [facility] on 02/21/19. Will need new orders to consult when medically appropriate. Thank you. Gin Bergman, PT
--- NOTE | 2019-02-21 08:49 | NUR ---
WOUND CARE NURSE HERE, REMOVED THE WOUND VAC FROM HOME. PHOTOS, MEASUREMENTS DONE AND [facility] IS APPLYING FACILITY WOUND VAC.
--- NOTE | 2019-02-21 09:20 | NUR ---
MORALES REA [id number] Please refer to the physician's history and physical for past medical history, comorbid conditions, and allergies. Diagnosis: UTI SEVERE SEPSIS Pedro Score: 13,MODERATE RISK WOUND DESCRIPTIONS: Wound Vac changed to coccyx per md order of 125mmHg continous with low intensity adaptic over bone then black foam on top. Wound was cleansed with with nss per order. Wound vac is due to be change every Mon-Wed-Fri if any question contact surgery or [facility] at [phone]. Patient tolerated procedure well with minimal amounts of pain. Maryann Toth RN, Gisele Leroy RN and Juan Luis CRAWLEY assisted in wound vac change. 1 piece of black foam. Wound Number: 1 Location of the wound: coccyx Type of wound: stage 4 Thickness: Full Size: 7.5cm x 7.5cm x 3.7cm Tunneling: none Underminin o'clock- 3 o'clock 5.5cm Sinus Tract: none Presence of Exudate: Serosanguineous Amount: Heavy Color: Red Odor: Foul Periwound Skin Appearance: Erythema Wound edges: epibole Pain (associated with wound): none at time of assessment How does patient state this happened? pt stated this has been ongoing for over a year now follows at [facility] Wound Number: 2 Location of the wound: right proximal hip Type of wound: director medical affairs pressure injury stage 2 Thickness: Partial Size: 1.0cm x 2.7cm x 0.1cm Tunneling: none Undermining: none Sinus Tract: none Presence of Exudate: Serous Amount: Light Color: Red Odor: None Periwound Skin Appearance: Erythema Wound edges: approximated Pain (associated with wound): none at time of assessment How does patient state this happened? this was due to wound vac dressing Wound Number: 3 Location of the wound: right hip medial Type of wound: director medical affairs pressure injury stage 2 Thickness: Partial Size: 3.0cm x 1.8cm x 0.1cm Tunneling: none Undermining: none Sinus Tract: none Presence of Exudate: Serous Amount: Light Color: Red Odor: None Periwound Skin Appearance: Erythema Wound edges: approximated Pain (associated with wound): none at time of assessment How does patient state this happened? this was due to wound vac dressing Wound Number: 4 Location of the wound: right hip lateral Type of wound: director medical affairs pressure injury stage 2 Thickness: Partial Size: 4.3cm x 4.3cm x <0.1cm Tunneling: none Undermining: none Sinus Tract: none Presence of Exudate: none Amount: none Color: Red Odor: None Periwound Skin Appearance: Erythema Wound edges: approximated Pain (associated with wound): none at time of assessment How does patient state this happened? this was due to wound vac dressing Surface the patient is resting on: Isoflex SKIN PREVENTION RECOMMENDATION: 1. Pressure redistribution support surface as appropriate 2. Elevate heels 3. Remove boots/TEDS every shift and reapply 4. Head of bed 30 degrees as tolerated 5. Assess nutrition and hydration 6. Manage moisture 7. Avoid the use of containment devices while in bed 8. Use absorptive products on surfaces limit layers of linens on bed 9. Turn and reposition every 1-2 hours in bed and every 1 hour in chair as tolerated 10. Weight shifts every 15 minutes while up in chair 11. Offloading with pillows or device to keep heels elevated off bed 12. Monitor skin at least every shift 13. Inspect under medical devices twice a day WOUND TREATMENT RECOMMENDATIONS: Spoke with Humera from [facility] out of [place] she stated to cleanse the coccyx wound with nss and apply wound vac with adaptic over the bone then black foam 125mmHg continous low intensity change sunday. Parital thickness guidelines: Cleanse right hip proximal, right hip medial, right hip lateral with nss and apply sureprep around the wound therahoney sheet to wound bed and cover with optifoam gentle. Wheelchair cushion when out of bed. [place]ron specialty bed. Heel raiser pro boots to bialteral heels while in bed.
--- NOTE | 2019-02-21 11:00 | NUR ---
Sanitation Inspector in to see patient. He does have home health care services at home, unsure of company at this time. He has a hospital bed at home and a wound vac that was place this morning here at the hospital. He follows with [facility]. No family is at the beside. Discharge plan undecided at this time.
--- NOTE | 2019-02-21 13:53 | NUR ---
IV LEFT ARM WAS INFILTRATED AND I PLACED 4F MIDLINE IN RT ARM. TOLERATED WELL. DR HARDEN HAS VISITED FOR INFECTIOUS DISEASE AND DR BRANDON HAS VISITED. THERE IS A CLINITRON BED ORDERED AND HE ORDERED DIFFERENT WOUND VAC SETTINGS FOR SUNDAY WHEN THE WOUND VAC IS CHANGED NEXT.
--- NOTE | 2019-02-21 14:40 | NUR ---
DR GARCES HAS VISITED. I OBTAINED THE WOUND CAMERA FOR HER TO VIEW PHOTOS TAKEN THIS MORNING WHEN WOUND VAC CHANGED.
--- NOTE | 2019-02-21 16:30 | NUR ---
WHEN DR GARCES HERE, SHE SAID SHE WOULD BE ORDERING A WOUND CULTURE TO BE DONE THE NEXT TIME WOUND VAC CHANGED.
--- NOTE | 2019-02-21 19:04 | NUR ---
CHART CHECK COMPLETE.
--- NOTE | 2019-02-21 19:47 | NUR ---
PT DOZING. HOB ELEVATED. NO DISTRESS NOTED.
--- NOTE | 2019-02-21 22:29 | NUR ---
PT TRANSFERRED TO CLINITRON BED WITH EASE.
[2019-02-22] VITALS: BP 134/51
--- NOTE | 2019-02-22 00:32 | NUR ---
PT STATES NORCO GIVEN AT 2245 PER PT REQUEST FOR GENERALIZED PAIN IS EFFECTIVE.
[2019-02-22 04:00] VITALS: BP 134/63
[2019-02-22 05:35] LABS: ALBUMIN 2.1 gm/dl (3.1-4.5); ALKALINE PHOSPHATASE 63 U/L (45-117); BUN 10 mg/dl (7-24); CHLORIDE 110 mmol/L (98-107); CREATININE 1.11 mg/dL (0.70-1.30); PHOSPHOROUS 3.1 mg/dL (2.5-4.9); POTASSIUM 3.4 mmol/L (3.5-5.1); SGOT/AST 9 IU/L (3-35); SGPT/ALT 11 U/L (12-78); SODIUM 142 mmol/L (136-145); TOTAL PROTEIN 6.2 gm/dL (6.4-8.2)
[2019-02-22 05:58] LABS: BASO % 0.2 % (0.0-1.0); EOS # 0.4 10*3/uL (0.0-0.4); HEMATOCRIT 24.4 % (42.0-52.0); HEMOGLOBIN 7.3 g/dl (14.0-18.0); LYMPH # 0.8 10*3/uL (1.3-4.4); LYMPH % 6.3 % (27.0-41.0); MEAN CELL VOLUME 92.4 fl (80.0-94.0); MEAN CORPUSCULAR HGB 27.7 pg (27.0-31.0); MEAN CORPUSCULAR HGB CONC 29.9 g/dl (33.0-37.0); MEAN PLATELET VOLUME 9.7 fl (9.6-12.3); MONO # 0.7 10*3/uL (0.1-1.0); MONO % 5.3 % (3.0-9.0); NEUT # 10.6 10*3/uL (2.3-7.9); NEUT % 83.5 % (47.0-73.0); PLATELET COUNT AUTOMATED 247 10*3/uL (130-400); RED BLOOD COUNT 2.64 10*6/uL (4.50-5.90); RED CELL DISTRI WIDTH 16.5 % (0-14.5); WHITE BLOOD COUNT 12.7 10*3/uL (4.8-10.8)
--- NOTE | 2019-02-22 06:04 | NUR ---
PT SLEEPING AT PRESENT TIME.
--- NOTE | 2019-02-22 06:15 | NUR ---
ALL SUPPLIES AND LINENS/GOWN AT BEDSIDE. PT AGAIN OFFERED BATH, EARLIER IN SHIFT, BUT PT DECLINES STATING "TOO SLEEPY."
[2019-02-22 08:00] VITALS: BP 139/72
--- NOTE | 2019-02-22 08:00 | NUR ---
PT AAOX3. RESP EASY. VSS. LUNG FIEDLS DIM. POX 94% RA. PT DENIES COUGHING. ABD. SOFT WITH ACTIVE BOWEL SOUNDS. COLOSTOMY BAG NOTED TO LLQ. BROWN STOOL NOTED IN BAG. SUPRAPUBIC SITE ASYMP. PALE YELLOW URINE NOTED IN CATH BAG. WOUND VAC INTACT TO COCCYX. BILAT TEDS. PT C/O MIGRAINE. HE STATES HE TAKES EXCEDRINE AT HOME FOR HIS CASTANEDA. WILL UPDATE DOCTOR. PT ALSO C/O NAUSEA. MEDICATED PT PER PRN ORDER WITH ZOFRAN.
--- NOTE | 2019-02-22 08:11 | NUR ---
DR Rochelle DAVEY UPDATED ON PT'S C/O MIGRAINE AND THAT HE TAKES EXCEDRINE AT HOME FOR HIS HEADACHES. ORDERS RECEIVED.
--- NOTE | 2019-02-22 08:22 | NUR ---
PT STATES RELIEF OF NAUSEA WITH EARLIER ZOFRAN.
--- NOTE | 2019-02-22 09:00 | NUR ---
PO KDUR AND IV MAGNESIUM GIVEN PER ORDER.
--- NOTE | 2019-02-22 09:05 | NUR ---
EXCEDRIN GIVEN PER ONE TIME ORDER FOR PT'S C/O MIGRAINE.
--- NOTE | 2019-02-22 09:45 | NUR ---
PT STATES EARLIER EXCEDRIN HELPED HIS CASTANEDA. NO C/O VOICED BY PT AT THIS TIME.
--- NOTE | 2019-02-22 10:14 | NUR ---
DR Jamison DAVEY IN TO SEE PT. NEW ORDERS RECEIVED. PT HAS BEEN DOWNGRADED TO [facility]. KILEY,SUPERVISOR WALL MIRROR DEPARTMENT UPDATED.
[2019-02-22 12:00] VITALS: BP 124/68
--- NOTE | 2019-02-22 13:50 | NUR ---
PT TRANSFERED TO 428 VIA BED. PT REPORT GIVEN TO RECEIVING RN AND PA.
[2019-02-22 16:00] VITALS: BP 133/62
[2019-02-22 20:00] VITALS: BP 148/70
--- NOTE | 2019-02-22 22:25 | NUR ---
PICTURE OF WOUND TO PALM OF LEFT HAND OBTAINED BY THIS RN. DOCUMENTATION COMPLETED. WILL NOTIFY
--- NOTE | 2019-02-22 22:59 | NUR ---
DR ALONSO NOTIFIED OF WOUND TO LEFT HAND
[2019-02-23] VITALS: BP 148/68
--- NOTE | 2019-02-23 | NUR ---
PREVIOUS NOTES ABOUT WOUND TO LEFT HAND IS NOT FOR THIS PATIENT.
--- NOTE | 2019-02-23 01:40 | NUR ---
24 HR chart check completed.
--- NOTE | 2019-02-23 02:16 | NUR ---
24 HR chart check completed.
[2019-02-23 05:30] VITALS: BP 112/57
--- NOTE | 2019-02-23 05:30 | NUR ---
C/O NAUSEA. ZOFRAN GIVEN PER ORDER. VITAL SIGNS TAKEN. CALLED DR. ALONSO AND NOTIFIED HER OF PT. C/O HAVING MIGRAINE HEADACHE AND THAT HE HAD THIS YESTERDAY MORNING AND THEY GAVE HIM EXCEDRINE. ORDER RECEIVED.
--- NOTE | 2019-02-23 06:13 | NUR ---
CALLED DR. ALONSO AND NOTIFIED HER UNABLE TO OBTAIN EXCEDRIN AT THIS TIME. OKAY TO GIVE TYLENOL. TYLENOL GIVEN PER ORDER FOR H/A PAIN RATED "9-10" PER PT. SEE MAR.
[2019-02-23 07:02] LABS: BASO # 0.1 10*3/uL (0.0-0.1); BASO % 0.3 % (0.0-1.0); EOS # 0.4 10*3/uL (0.0-0.4); HEMATOCRIT 26.8 % (42.0-52.0); HEMOGLOBIN 8.1 g/dl (14.0-18.0); LYMPH # 0.6 10*3/uL (1.3-4.4); LYMPH % 3.1 % (27.0-41.0); MEAN CELL VOLUME 91.5 fl (80.0-94.0); MEAN CORPUSCULAR HGB 27.6 pg (27.0-31.0); MEAN CORPUSCULAR HGB CONC 30.2 g/dl (33.0-37.0); MEAN PLATELET VOLUME 9.2 fl (9.6-12.3); MONO # 0.8 10*3/uL (0.1-1.0); MONO % 3.9 % (3.0-9.0); NEUT # 17.2 10*3/uL (2.3-7.9); NEUT % 89.4 % (47.0-73.0); NUCLEATED RED BLOOD CELL 0.1 % (0.0-0.0); PLATELET COUNT AUTOMATED 296 10*3/uL (130-400); RED BLOOD COUNT 2.93 10*6/uL (4.50-5.90); RED CELL DISTRI WIDTH 16.7 % (0-14.5); WHITE BLOOD COUNT 19.2 10*3/uL (4.8-10.8)
[2019-02-23 07:34] LABS: ALBUMIN 2.1 gm/dl (3.1-4.5); BUN 7 mg/dl (7-24); CHLORIDE 105 mmol/L (98-107); CREATININE 1.18 mg/dL (0.70-1.30); PHOSPHOROUS 2.8 mg/dL (2.5-4.9); POTASSIUM 3.9 mmol/L (3.5-5.1); SGOT/AST 9 IU/L (3-35); SGPT/ALT 13 U/L (12-78); SODIUM 138 mmol/L (136-145); TOTAL PROTEIN 6.4 gm/dL (6.4-8.2)
[2019-02-23 07:35] LABS: ALKALINE PHOSPHATASE 63 U/L (45-117)
[2019-02-23 08:00] VITALS: BP 123/65
[2019-02-23 12:00] VITALS: BP 115/54
[2019-02-23 16:00] VITALS: BP 122/48
--- NOTE | 2019-02-23 18:49 | NUR ---
PT MEDICATED WITH NORCO AT HIS REQUEST FOR C/O NECK AND ARM PAIN.
[2019-02-23 20:00] VITALS: BP 141/62
[2019-02-24] VITALS: BP 148/66
--- NOTE | 2019-02-24 01:42 | NUR ---
PATIENT MEDICATED WITH NORCO FOR COMPLAINTS OF HEAD AND NECK PAIN FROM MATTRESS. WILL CONTINUE TO MONITOR. CALL LIGHT IN REACH.
--- NOTE | 2019-02-24 04:46 | NUR ---
PATIENT TRANSFERRED TO A RED BED D/T CLINITRON BED MALFUNCTIONING. PATIENT COMPLAINING OF LAYING ON STRAIGHT BOARD AND NOT BEING ABLE TO TAKE IT ANY LONGER. BED NOT INFLATING AT THE TOP. AS400 PROGRAMMER ANALYST AND WOUND CARE NURSE NOTIFIED. NO AREAS NOTED TO BACK. WILL CONTINUE TO MONITOR.
--- NOTE | 2019-02-24 06:06 | NUR ---
SPOKE WITH A AIR TRANSPORTATION PROVIDER FROM [facility]. NOTIFIED HIM THAT THE PATIENTS BED WAS SAYING A ZONE 1 ERROR. HE STATED SOMEONE WOULD BE OUT TO FIX THE BED SOMETIME THIS MORNING
[2019-02-24 06:54] LABS: BASO % 0.3 % (0.0-1.0); EOS # 0.6 10*3/uL (0.0-0.4); EOS % 5.1 % (1.0-4.0); HEMATOCRIT 27.3 % (42.0-52.0); HEMOGLOBIN 8.2 g/dl (14.0-18.0); LYMPH # 0.8 10*3/uL (1.3-4.4); LYMPH % 6.5 % (27.0-41.0); MEAN CELL VOLUME 92.2 fl (80.0-94.0); MEAN CORPUSCULAR HGB 27.7 pg (27.0-31.0); MEAN PLATELET VOLUME 9.3 fl (9.6-12.3); MONO # 0.8 10*3/uL (0.1-1.0); MONO % 6.5 % (3.0-9.0); NEUT # 10.2 10*3/uL (2.3-7.9); NEUT % 80.2 % (47.0-73.0); NUCLEATED RED BLOOD CELL 0.2 % (0.0-0.0); PLATELET COUNT AUTOMATED 301 10*3/uL (130-400); RED BLOOD COUNT 2.96 10*6/uL (4.50-5.90); RED CELL DISTRI WIDTH 16.7 % (0-14.5); WHITE BLOOD COUNT 12.7 10*3/uL (4.8-10.8)
[2019-02-24 06:56] LABS: ALBUMIN 2.2 gm/dl (3.1-4.5); ALKALINE PHOSPHATASE 57 U/L (45-117); BUN 9 mg/dl (7-24); CHLORIDE 106 mmol/L (98-107); CREATININE 1.17 mg/dL (0.70-1.30); PHOSPHOROUS 3.4 mg/dL (2.5-4.9); POTASSIUM 3.7 mmol/L (3.5-5.1); SGOT/AST 6 IU/L (3-35); SGPT/ALT 12 U/L (12-78); SODIUM 138 mmol/L (136-145); TOTAL PROTEIN 6.8 gm/dL (6.4-8.2)
--- NOTE | 2019-02-24 07:20 | NUR ---
PATIENT RESTING QUIETLY WITH EYES CLOSED, RESPIRATIONS EVEN AND NON LABORED, HOB ELEVATED 30 DEGREES, WHITE BOARD UPDATED, NO NEEDS VOICED AT THIS TIME.
--- NOTE | 2019-02-24 07:49 | NUR ---
Shift chart check completed.
--- NOTE | 2019-02-24 09:00 | NUR ---
Diplomatic Interpreter/Translator in to talk to patient. Patient states lives at home with his . There are 0 steps in the home. Physician: Dr. Melinda Kelley Pharmacy: [facility] Home health services: none Patient's level of ADLs: MODERATE ASSIST Patient has working utilities: yes DME: wheelchair, nebulizer, wound vac Follow-up physician's appointment after d/c: will be made by the hospitalist nurse director upon discharge Does patient want to access PORTAL?: no Discharge plan discussed with patient. He lives at home with his . He needs moderate assistance with his ADLs and gets around in a wheelchair. Discussed short term SNF and home health care services and he refuses both. When medically stable he will be discharged to home. He states he would need to go home by ambulance. MICHELLE HARDY
--- NOTE | 2019-02-24 09:00 | NUR ---
Supervisor Billposting in to talk to patient. Patient states lives at home with his . There are 0 steps in the home. Physician: Dr. Melinda Kelley Pharmacy: [facility] Home health services: [facility] Patient's level of ADLs: MODERATE ASSIST Patient has working utilities: yes DME: wheelchair, nebulizer, wound vac Follow-up physician's appointment after d/c: will be made by the hospitalist nurse director upon discharge Does patient want to access PORTAL?: no Discharge plan discussed with patient. He lives at home with his . He needs moderate assistance with his ADLs and gets around in a wheelchair. Discussed short term SNF and he refuses. Discussed home health care services and he currently has [facility] and would like to continue those services upon discharge. Hospitalist nurse director notified. When medically stable he will be discharged to home. He states he would need to go home by ambulance.
--- NOTE | 2019-02-24 09:54 | NUR ---
MORALES REA [id number] Please refer to the physician's history and physical for past medical history, comorbid conditions, and allergies. Diagnosis: UTI SEVERE SEPSIS Pedro Score: 12,HIGH RISK Wound Vac changed to coccyx per md order of 125mmHg continous with low intensity adaptic over bone then one piece of black foam on top. Wound was cleansed with with nss per order. Wound vac is due to be change every Mon-Wed-Fri if any question contact [facility] at [phone]. Patient tolerated procedure well. Patient denied pain. Sarah Steinberg RN assisted in wound vac change. WOUND DESCRIPTIONS: Wound Number: 1 Location of the wound: COCCYX Type of wound: STAGE 4 Thickness: Full Size: 5.5cm X 8cm X 4.5cm Tunneling: NONE Underminin O'CLOCK TO 2 O'CLOCK DISTANCE OF 5.5cm Sinus Tract: NONE Presence of Exudate: Serous sanguineous Amount: Moderate Color: Red Odor: None Periwound Skin Appearance: Erythema Wound edges: EPIBOLE Pain (associated with wound): DENIED AT TIME OF ASSESSMENT Surface the patient is resting on: Position Pro SKIN PREVENTION RECOMMENDATION: 1. Pressure redistribution support surface as appropriate 2. Elevate heels 3. Remove boots/TEDS every shift and reapply 4. Head of bed 30 degrees as tolerated 5. Assess nutrition and hydration 6. Manage moisture 7. Avoid the use of containment devices while in bed 8. Use absorptive products on surfaces limit layers of linens on bed 9. Turn and reposition every 1-2 hours in bed and every 1 hour in chair as tolerated 10. Weight shifts every 15 minutes while up in chair 11. Offloading with pillows or device to keep heels elevated off bed 12. Monitor skin at least every shift 13. Inspect under medical devices twice a day
[2019-02-24 12:00] VITALS: BP 147/66
[2019-02-24 16:00] VITALS: BP 148/71
[2019-02-24 20:00] VITALS: BP 141/64
--- NOTE | 2019-02-24 21:30 | NUR ---
MEDICATED WITH NORCO PER PRN ORDER FOR C/O PAIN.
[2019-02-25] VITALS: BP 144/68
--- NOTE | 2019-02-25 05:33 | NUR ---
BLOODOSE 125.
--- NOTE | 2019-02-25 07:50 | NUR ---
PT MEDICATED WITH [facility] FOR C/O NECK PAIN AND ZOFRAN FOR C/O NAUSEA.
[2019-02-25 08:00] VITALS: BP 149/75; BP 154/76
--- NOTE | 2019-02-25 11:55 | NUR ---
Faxed resume home health care order to [facility]. Awaiting return call regarding order of wound vac continuation.
[2019-02-25 12:00] VITALS: BP 152/64
[2019-02-25] MEDS ORDERED: SEPTDS PO (14:22)
[2019-02-25 16:00] VITALS: BP 147/62
--- NOTE | 2019-02-25 18:18 | NUR ---
SPOKE WITH DR JUNG ABOUT ORDER TO DC MIDLINE - PATIENT WANTS IT LEFT IN CASE THERE ARE ANY FURTHER LABS TO BE DRAWN. OK TO LEAVE UTIL TOMORROW
[2019-02-25 20:00] VITALS: BP 150/79
--- NOTE | 2019-02-25 20:30 | NUR ---
[facility] GIVEN PER ORDER FOR NECK PAIN RATED 7/10. SEE MAR.
--- NOTE | 2019-02-25 21:30 | NUR ---
[facility] EFFECTIVE FOR PAIN PER PT.
[2019-02-26] VITALS: BP 144/72
--- NOTE | 2019-02-26 07:03 | NUR ---
24 HR chart check completed.
[2019-02-26 08:00] VITALS: BP 148/72
--- NOTE | 2019-02-26 08:16 | NUR ---
Spoke to Afsaneh at [facility] regarding discharge wound vac orders. She stated new wound vac orders will be needed and the orders can be entered into the discharge disposition. Will notify home health when patient is discharging and if they need to place the wound vac. Nyasia Higgins notified.
[2019-02-26] MEDS ORDERED: VITAMIN D32000 UNI1 PO (10:03)
[2019-02-26] MEDS ORDERED: NORCO 10-325 T1 EACH PO (10:03)
--- NOTE | 2019-02-26 10:48 | NUR ---
Patient is discharged to home to [facility]. Patient will transport home with [facility] at 11:30. Attempted to notify patients , but there was no answer. Attempted to contact patients arnie Duval, again no answer, left voicemail.
--- NOTE | 2019-02-26 10:48 | NUR ---
Notified Lisa at [facility] of patient discharging to home today and the inga for a wound vac to be placed. She will notify Heather and have her return my call. Awaiting return call.
--- NOTE | 2019-02-26 10:51 | NUR ---
Spoke to Heather at [facility]. Heather will larry nurse to make sure wound vac can be placed tonight if not it will be placed tomorrow morning. Heather asked for a wet to dry dressing be placed. Informed there were orders for a wet to dry dressing.
--- NOTE | 2019-02-26 11:24 | NUR ---
Faxed discharge summary to [facility].
[2019-02-26] MEDS ORDERED: SEPTDS PO (11:27)
--- NOTE | 2019-02-26 11:30 | NUR ---
Discharge instructions reviewed with patient/family. Patient receptive and verbalizes understanding. Follow-up care arranged. Written instructions given to patient/family. MANJIT GRIGGS
--- NOTE | 2019-02-26 11:39 | NUR ---
[facility] HERE TO TRANSPORT PT HOME.
--- NOTE | 2019-02-26 15:01 | NUR ---
Faxed updated discharge summary to [facility] as requested
== END 2019-02-26 11:39 | disposition home health service (06) | DRG 999 ==
LOC: ED 18:01 → 4E 19:40 → EDHOLD 19:40 → ICCU 19:40 → 4E 20:21 → ICCU 02-21 01:35 → 4E 02-22 13:30
PROVIDERS: Hospitalist; Internal Medicine; Nurse Practitioner Family; ADMIT Internal Medicine
DX: Y92.89 Other specified places as the place of occurrence of the external cause (principal); T83.518A Infection and inflammatory reaction due to other urinary catheter, initial encounter; L89.154 Pressure ulcer of sacral region, stage 4; J18.9 Pneumonia, unspecified organism; R65.20 Severe sepsis without septic shock; A41.51 Sepsis due to Escherichia coli [E. coli]; A41.02 Sepsis due to Methicillin resistant Staphylococcus aureus; J96.01 Acute respiratory failure with hypoxia; N30.01 Acute cystitis with hematuria; J44.0 Chronic obstructive pulmonary disease with (acute) lower respiratory infection; M86.68 Other chronic osteomyelitis, other site; G82.20 Paraplegia, unspecified; E44.0 Moderate protein-calorie malnutrition; I48.1 Persistent atrial fibrillation; D68.69 Other thrombophilia; I95.9 Hypotension, unspecified; E11.65 Type 2 diabetes mellitus with hyperglycemia; X58.XXXD Exposure to other specified factors, subsequent encounter; I48.0 Paroxysmal atrial fibrillation; K21.9 Gastro-esophageal reflux disease without esophagitis; M19.90 Unspecified osteoarthritis, unspecified site; D63.1 Anemia in chronic kidney disease; N18.3 Chronic kidney disease, stage 3 (moderate); Y84.6 Urinary catheterization as the cause of abnormal reaction of the patient, or of later complication, without mention of misadventure at the time of the procedure; E11.22 Type 2 diabetes mellitus with diabetic chronic kidney disease; I12.9 Hypertensive chronic kidney disease with stage 1 through stage 4 chronic kidney disease, or unspecified chronic kidney disease; E78.5 Hyperlipidemia, unspecified; E55.9 Vitamin D deficiency, unspecified; T36.8X5A Adverse effect of other systemic antibiotics, initial encounter; B96.20 Unspecified Escherichia coli [E. coli] as the cause of diseases classified elsewhere; G89.4 Chronic pain syndrome; E78.00 Pure hypercholesterolemia, unspecified; F32.9 Major depressive disorder, single episode, unspecified; Z68.35 Body mass index [BMI] 35.0-35.9, adult; Z93.2 Ileostomy status; Z83.3 Family history of diabetes mellitus; Z82.49 Family history of ischemic heart disease and other diseases of the circulatory system; Z80.8 Family history of malignant neoplasm of other organs or systems; Z84.1 Family history of disorders of kidney and ureter; Z88.8 Allergy status to other drugs, medicaments and biological substances; Z88.1 Allergy status to other antibiotic agents; Z91.040 Latex allergy status; Z79.82 Long term (current) use of aspirin; Z79.899 Other long term (current) drug therapy; Z93.3 Colostomy status; Z79.4 Long term (current) use of insulin; S31.000D Unspecified open wound of lower back and pelvis without penetration into retroperitoneum, subsequent encounter; Z86.711 Personal history of pulmonary embolism; Z87.891 Personal history of nicotine dependence; Z95.810 Presence of automatic (implantable) cardiac defibrillator; Z22.322 Carrier or suspected carrier of Methicillin resistant Staphylococcus aureus

== ENCOUNTER → 2021-05-10 | Outpatient (CLI) | payer MEDICARE ==
[~2021-05-10] MED LIST changes: +AMOXICILLIN500 M3 PO; +INVANZ1 GM/50 ML IV; +LEVEMIR100 UNIT/1 SC; +NORCO 10-325 T1 EACH PO; +NOVOLOG10 ML SC; +SEPTDS PO; +VITAMIN D32000 UNI1 PO; +Ventolin 02.5 MG/3 M INH
== END ==
LOC: WOUNDCARE 09:02
PROVIDERS: ATTEND Surgery
DX: E11.622 Type 2 diabetes mellitus with other skin ulcer (principal); L89.154 Pressure ulcer of sacral region, stage 4; L98.491 Non-pressure chronic ulcer of skin of other sites limited to breakdown of skin; L89.304 Pressure ulcer of unspecified buttock, stage 4; L98.411 Non-pressure chronic ulcer of buttock limited to breakdown of skin; L89.104 Pressure ulcer of unspecified part of back, stage 4; L98.421 Non-pressure chronic ulcer of back limited to breakdown of skin; L89.224 Pressure ulcer of left hip, stage 4; L89.214 Pressure ulcer of right hip, stage 4; L03.317 Cellulitis of buttock; Z86.73 Personal history of transient ischemic attack (TIA), and cerebral infarction without residual deficits; Z87.891 Personal history of nicotine dependence

== ENCOUNTER → 2021-05-17 | Outpatient (CLI) | payer MEDICARE | LOC: WOUNDCARE 15:29 | PROVIDERS: ATTEND Surgery | DX: E11.622 Type 2 diabetes mellitus with other skin ulcer (principal); L89.154 Pressure ulcer of sacral region, stage 4; L98.491 Non-pressure chronic ulcer of skin of other sites limited to breakdown of skin; L89.224 Pressure ulcer of left hip, stage 4; L89.214 Pressure ulcer of right hip, stage 4; L03.317 Cellulitis of buttock; Z86.73 Personal history of transient ischemic attack (TIA), and cerebral infarction without residual deficits; Z87.891 Personal history of nicotine dependence ==

== ENCOUNTER → 2021-05-31 | Outpatient (CLI) | payer MEDICARE ==
[~2021-05-31] MED LIST changes: +COREG3.125 MG PO; +PREMIERPRO RX500 M2 IV; +VANCOMYCIN1.25 GM/12 IV
[2021-05-31 10:20] VITALS: BP 100/55
== END | disposition home or self-care (01) ==
LOC: MEDIPORT 08:53
PROVIDERS: ATTEND Internal Medicine
DX: Z45.2 Encounter for adjustment and management of vascular access device (principal); J44.9 Chronic obstructive pulmonary disease, unspecified; K21.9 Gastro-esophageal reflux disease without esophagitis; E78.00 Pure hypercholesterolemia, unspecified; E11.22 Type 2 diabetes mellitus with diabetic chronic kidney disease; I12.9 Hypertensive chronic kidney disease with stage 1 through stage 4 chronic kidney disease, or unspecified chronic kidney disease; N18.9 Chronic kidney disease, unspecified; I48.91 Unspecified atrial fibrillation

== ENCOUNTER → 2021-05-31 | Outpatient (CLI) | payer MEDICARE | LOC: WOUNDCARE 01:32 | PROVIDERS: ATTEND Surgery | DX: E11.622 Type 2 diabetes mellitus with other skin ulcer (principal); L89.154 Pressure ulcer of sacral region, stage 4; L98.491 Non-pressure chronic ulcer of skin of other sites limited to breakdown of skin; L03.317 Cellulitis of buttock; Z86.73 Personal history of transient ischemic attack (TIA), and cerebral infarction without residual deficits; Z87.891 Personal history of nicotine dependence ==

== ENCOUNTER → 2021-06-07 | Outpatient (CLI) | payer MEDICARE | END | disposition home or self-care (01) | LOC: WOUNDCARE | PROVIDERS: ATTEND Surgery | DX: E11.622 Type 2 diabetes mellitus with other skin ulcer (principal); L89.154 Pressure ulcer of sacral region, stage 4; L98.492 Non-pressure chronic ulcer of skin of other sites with fat layer exposed; L89.224 Pressure ulcer of left hip, stage 4; L89.214 Pressure ulcer of right hip, stage 4; L97.811 Non-pressure chronic ulcer of other part of right lower leg limited to breakdown of skin; E11.621 Type 2 diabetes mellitus with foot ulcer; L89.893 Pressure ulcer of other site, stage 3; L97.511 Non-pressure chronic ulcer of other part of right foot limited to breakdown of skin; Z86.73 Personal history of transient ischemic attack (TIA), and cerebral infarction without residual deficits; Z87.891 Personal history of nicotine dependence ==

== ENCOUNTER → 2021-06-07 | Outpatient (CLI) | payer MEDICARE | END | disposition home or self-care (01) | LOC: MEDIPORT 11:30 | PROVIDERS: ATTEND Nurse Practitioner Family | DX: Z45.2 Encounter for adjustment and management of vascular access device (principal) ==

== ENCOUNTER → 2021-06-14 | Outpatient (CLI) | payer MEDICARE | LOC: WOUNDCARE 01:52 | PROVIDERS: ATTEND Surgery | DX: E11.622 Type 2 diabetes mellitus with other skin ulcer (principal); L89.154 Pressure ulcer of sacral region, stage 4; L98.492 Non-pressure chronic ulcer of skin of other sites with fat layer exposed; L89.224 Pressure ulcer of left hip, stage 4; L89.214 Pressure ulcer of right hip, stage 4; L03.317 Cellulitis of buttock; Z86.73 Personal history of transient ischemic attack (TIA), and cerebral infarction without residual deficits; Z87.891 Personal history of nicotine dependence ==